=== PATIENT | female | born 1945 | race Caucasian/White ===

== ENCOUNTER 2017-01-29 09:16 | Emergency (ER) | payer OTHER ==
[~2017-01-29] VITALS: Ht 149.9 cm; Wt 65.0 kg
[~2017-01-29 09:16] MED LIST: ATOR10TA PO; CARV6.252 PO; FOLI1 PO; FOSA70TA PO; FURO1TAB93 PO; HYDR200T3 PO; JANU50TA PO; LEFL20TA7 PO; LORTA5 PO; MEDR4PAK3 PO; METH2.5 PO; PRED5TAB PO; PROT40TA PO; RAMI10CA35 PO; SPIR25TA PO
[2017-01-29 09:18] VITALS: BP 141/60; PULSE 98; RESP 18; TEMP 98.3; O2SAT 98
[2017-01-29 09:31] VITALS: BP 136/101; PULSE 99; RESP 18; O2SAT 98
[2017-01-29] MEDS ORDERED: PRED1 PO (09:44)
[2017-01-29] MEDS ORDERED: CARV6.252 PO (09:44)
[2017-01-29] MEDS ORDERED: METF500T4 PO (09:44)
[2017-01-29] MEDS ORDERED: PANT40TA3 PO (09:44)
[2017-01-29] MEDS ORDERED: ATOR10TA15 PO (09:44)
[2017-01-29] MEDS ORDERED: FURO40TA PO (09:44)
[2017-01-29] MEDS ORDERED: SULF500T3 PO (09:44)
[2017-01-29] MEDS ORDERED: ALEN1TAB48 PO (09:44)
[2017-01-29] MEDS ORDERED: SITA50 PO (09:44)
[2017-01-29] MEDS ORDERED: METH2.5T PO (09:44)
[2017-01-29] MEDS ORDERED: HYDR200T3 PO (09:44)
[2017-01-29] MEDS ORDERED: FOLI5CAP PO (09:44)
[2017-01-29 10:07] VITALS: O2SAT 97
[2017-01-29 10:21] LABS: AUTOMATED NEUTROPHIL # 10.8 TH/MM3 (1.8-7.7); BASOPHIL # 0.1 TH/MM3 (0-0.2); BASOPHIL % 0.8 % (0.0-2.0); EOSINOPHIL # 0.3 TH/MM3 (0-0.4); EOSINOPHIL % 2.3 % (0.0-4.0); HEMATOCRIT 32.8 % (35.0-46.0); HEMO FLAGS DIFF FINAL; LYMPH % 7.4 % (9.0-44.0); MEAN CELL VOLUME 90.7 FL (80.0-100.0); MEAN CORPUSCULAR HEMOGLOBIN 28.8 PG (27.0-34.0); MEAN CORPUSCULAR HGB CONC 31.8 % (32.0-36.0); MONO % 7.3 % (0.0-8.0); NEUT % 82.2 % (16.0-70.0); PLATELET COUNT 277 TH/MM3 (150-450); RED BLOOD COUNT 3.61 MIL/MM3 (4.00-5.30); RED CELL DISTRIBUTION WIDTH 16.3 % (11.6-17.2); WHITE BLOOD COUNT 13.2 TH/MM3 (4.0-11.0)
[2017-01-29 10:30] VITALS: BP 143/70; PULSE 94; RESP 18; O2SAT 98
[2017-01-29] MEDS ORDERED: ONDANSETRON HCL 4 MG/2 ML VIAL IV PUSH ONE (10:30)
[2017-01-29] MEDS ORDERED: HYDROmorphone HCL PF 1 MG/ML VIAL IV PUSH ONE (10:30)
--- NOTE | 2017-01-29 10:45 | RADRPT ---
EXAM DATE/TIME: 01/29/2017 09:57 [facility] COMPARISON: CHEST SINGLE AP, July 09, 2016, 22:22. INDICATIONS: Weakness. Slight shortness of breath. MEDICAL HISTORY: Hypertension. Diabetes mellitus type II. SURGICAL HISTORY: None. ENCOUNTER: Initial ACUITY: 1 day PAIN SCORE: 0/10 LOCATION: Bilateral chest FINDINGS: The heart and mediastinal structures are stable. The pulmonary vascular pattern is normal. The lung s are clear. Degenerative changes and scoliosis of the thoracolumbar spine are noted. CONCLUSION: 1. No acute cardiopulmonary disease. 2. Degenerative changes and scoliosis of the thoracolumbar spine. Rad Garcia MD on January 29, 2017 at 10:27 Board Certified Radiologist. This report was verified electronically.
--- NOTE | 2017-01-29 10:48 | PD ---
HPI Chief Complaint: General Weakness Time Seen by Provider: 09:38 Travel History International Travel<30 days: No Contact w/Intl Traveler<30days: No Traveled to known affect area: No History of Present Illness HPI This is a 71-year-old female with a history of hypertension, hyperlipidemia, diabetes mellitus, osteopenia, rheumatoid arthritis, who presents today with complaints of total body pain. The patient states that she was scheduled to see her primary care physician for something stronger for her pain however was not able to wait until the appointment later this week. She reports pain everywhere. She also reports general malaise. There is no reported fevers, chills. There is no reported dysuria urgency or frequency. There is no reported cough and shortness of breath or pulmonary symptoms. Patient does state that she has not been eating well secondary to her generalized discomfort. PFSH Past Medical History Arthritis: Yes Anxiety: No Depression: No Cardiovascular Problems: Yes (HTN) High Cholesterol: Yes Diabetes: Yes Patient Takes Glucophage: Yes Endocrine: Yes Genitourinary: No Hypertension: Yes Implanted Vascular Access Dvce: Yes Musculoskeletal: Yes (RA, OA, Left Rib fx ) Psychiatric: No Reproductive: No Tetanus Vaccination: Unknown Influenza Vaccination: No ?: Not Past Surgical History Body Medical Devices: metal plate in Right knee Social History Alcohol Use: No Tobacco Use: No Substance Use: No Allergies-Medications (Allergen,Severity, Reaction): Coded Allergies: No Known Allergies (Unverified , 07/09/16) Reported Meds & Prescriptions Reported Meds & Active Scripts Active Zofran Odt (Ondansetron Odt) 4 Mg Tab 4 Mg SL Q8HR PRN Dilaudid (Hydromorphone HCl) 2 Mg Tab 1 Mg PO Q8H PRN Reported Sulfasalazine 500 Mg Tab 500 Mg PO BID Pantoprazole (Pantoprazole Sodium) 40 Mg Tab 40 Mg PO DAILY Alendronate (Alendronate Sodium) 70 Mg Tab 70 Mg PO Q7D Hydroxychloroquine (Hydroxychloroquine Sulfate) 200 Mg Tab 200 Mg PO DAILY Takw with food Methotrexate 2.5 Mg Tab 25 Mg PO WEEKLY Atorvastatin (Atorvastatin Calcium) 10 Mg Tab 10 Mg PO HS Folic Acid 5 Mg Cap 5 Mg PO DAILY Furosemide 40 Mg Tab 40 Mg PO DAILY Carvedilol 6.25 Mg Tab 6.25 Mg PO BID Prednisone 1 Mg Tab 1 Mg PO DAILY Januvia (Sitagliptin Phosphate) 50 Mg Tab 50 Mg PO DAILY Metformin ER (Metformin HCl) 500 Mg Camron 500 Mg PO DAILY With evening meal Review of Systems Except as stated in HPI: all other systems reviewed are Neg General / Constitutional: No: Fever, Chills HENT: No: Headaches, Lightheadedness, Neck Pain Cardiovascular: No: Chest Pain or Discomfort, Palpitations Respiratory: No: Cough, Shortness of Breath Gastrointestinal: No: Nausea, Vomiting, Abdominal Pain Genitourinary: No: Frequency, Dysuria Musculoskeletal: Positive: Pain (diffuse joint pain), No: Myalgias, Weakness Skin: No Rash Neurologic: Positive: Weakness (generalized), No: Headache Physical Exam Narrative GENERAL: Well-nourished, well-developed patient, in no acute respiratory distressatraumatic. SKIN: Warm and dry. HEAD: Normocephalic. EYES: No scleral icterus. No injection or drainage. NECK: Supple, trachea midline. CARDIOVASCULAR: Regular rate and rhythm without murmurs, gallops, or rubs. RESPIRATORY: Breath sounds equal bilaterally. No accessory muscle use. GASTROINTESTINAL: Abdomen soft, non-tender, nondistended. No rebound, guarding. MUSCULOSKELETAL: No cyanosis, or edema. NEUROLOGICAL: Awake and alert. Cranial nerves II through XII intact. Motor grossly within normal limits. Five out of 5 muscle strength in all muscle groups. Normal speech. Data Data Last Documented VS Vital Signs Date Time Temp Pulse Resp B/P Pulse Ox O2 Delivery O2 Flow Rate FiO2 01/29/17 12:00 87 18 175/74 98 Room Air 01/29/17 09:18 98.3 Orders Complete Blood Count With Diff (01/29/17 09:55) Comprehensive Metabolic Panel (01/29/17 09:55) Urinalysis - C+S If Indicated (01/29/17 09:55) Chest, Single Ap (01/29/17 09:55) Iv Access Insert/Monitor (01/29/17 09:55) Ecg Monitoring (01/29/17 09:55) Oximetry (01/29/17 09:55) Hydromorphone Pf Inj (Dilaudid Pf Inj) (01/29/17 10:30) Ondansetron Inj (Zofran Inj) (01/29/17 10:30) Labs Laboratory Tests Test 01/29/17 10:00 White Blood Count 13.2 TH/MM3 Red Blood Count 3.61 MIL/MM3 Hemoglobin 10.4 GM/DL Hematocrit 32.8 % Mean Corpuscular Volume 90.7 FL Mean Corpuscular Hemoglobin 28.8 PG Mean Corpuscular Hemoglobin 31.8 % Concent Red Cell Distribution Width 16.3 % Platelet Count 277 TH/MM3 Mean Platelet Volume 8.9 FL Neutrophils (%) (Auto) 82.2 % Lymphocytes (%) (Auto) 7.4 % Monocytes (%) (Auto) 7.3 % Eosinophils (%) (Auto) 2.3 % Basophils (%) (Auto) 0.8 % Neutrophils # (Auto) 10.8 TH/MM3 Lymphocytes # (Auto) 1.0 TH/MM3 Monocytes # (Auto) 1.0 TH/MM3 Eosinophils # (Auto) 0.3 TH/MM3 Basophils # (Auto) 0.1 TH/MM3 CBC Comment DIFF FINAL Differential Comment Sodium Level 138 MEQ/L Potassium Level 4.0 MEQ/L Chloride Level 100 MEQ/L Carbon Dioxide Level 29.7 MEQ/L Anion Gap 8 MEQ/L Blood Urea Nitrogen 22 MG/DL Creatinine 1.13 MG/DL Estimat Glomerular Filtration 47 ML/MIN Rate Random Glucose 207 MG/DL Calcium Level 8.6 MG/DL Total Bilirubin 0.6 MG/DL Aspartate Amino Transf 12 U/L (AST/SGOT) Alanine Aminotransferase 25 U/L (ALT/SGPT) Alkaline Phosphatase 73 U/L Total Protein 7.4 GM/DL Albumin 2.8 GM/DL MDM Medical Decision Making Medical Screen Exam Complete: Yes Emergency Medical Condition: Yes Differential Diagnosis UTI versus pneumonia versus electrolyte abnormality versus acute exacerbation of chronic pain. Narrative Course 71-year-old female with history of rheumatoid arthritis, osteopenia, hypertension, diabetes mother's, presents today with claims of generalized joint pain. The patient states that she is scheduled to see her rheumatoid specialist tomorrow. I did try to call her primary care physician to discuss pain control until she sees the specialist however he had not called back. She was given 0.5 mg of Dilaudid which helped tremendously. I have written her prescription for 1 mg every 8 hours of Dilaudid. She is instructed not to take any more than that and if she could stretch out every 12 hours to do so. She is also given a prescription for Zofran. She'll follow up with Dr. Marr on as scheduled. Diagnosis Primary Impression: pain exacerbation of rheumatoid arthritis. Additional Impressions: DM2 (diabetes mellitus, type 2) Nausea & vomiting Patient Instructions: Narcotic given in the ED Med/Other Pt SpecificInfo: Prescription(s) given Scripts Ondansetron Odt (Zofran Odt)4 Mg Tab4 Mg SL Q8HR PRN (Nausea/Vomiting) #10 TAB Ref 0 Prov:George Márquez MD 01/29/17 Hydromorphone (Dilaudid)2 Mg Tab1 Mg PO Q8H PRN (Pain Management) #10 TAB Ref 0 Prov:George Márquez MD 01/29/17 Disposition: LEFT WITHOUT BEING SEEN George Márquez MD Jan 29, 2017 10:48
[2017-01-29 10:52] LABS: ALT (GPT) 25 U/L (10-53); ANION GAP 8 MEQ/L (5-15); AST (GOT) 12 U/L (15-37); BICARBONATE 29.7 MEQ/L (21.0-32.0); BLOOD UREA NITROGEN 22 MG/DL (7-18); CHLORIDE 100 MEQ/L (98-107); GLOMERULAR FILTRATION RATE 47 ML/MIN (>89); SODIUM (NA) 138 MEQ/L (136-145)
[2017-01-29 10:55] LABS: ALKALINE PHOSPHATASE 73 U/L (45-117); TOTAL BILIRUBIN ADULT 0.6 MG/DL (0.2-1.0)
[2017-01-29 12:00] VITALS: BP 175/74; PULSE 87; RESP 18; O2SAT 98
[2017-01-29] MEDS ORDERED: DILA2TAB2 PO (12:01)
[2017-01-29] MEDS ORDERED: ZOFR4TAB3 SL (12:14)
[2017-01-29 13:30] VITALS: BP 176/76; PULSE 91; RESP 18; O2SAT 98
== END 2017-01-29 14:24 | disposition home or self-care (01) ==
LOC: NEPE 09:16
DX: M06.9 Rheumatoid arthritis, unspecified (principal); E11.9 Type 2 diabetes mellitus without complications; R11.2 Nausea with vomiting, unspecified; R53.81 Other malaise; M85.80 Other specified disorders of bone density and structure, unspecified site; I10 Essential (primary) hypertension; E78.5 Hyperlipidemia, unspecified; E78.00 Pure hypercholesterolemia, unspecified
CPT/HCPCS: 71010; 80053; 85025; 96374; 96375; 99283; J1170; J2405

== ENCOUNTER 2017-02-13 15:53 | Emergency (ER) | payer OTHER ==
[~2017-02-13] VITALS: Ht 149.9 cm; Wt 66.4 kg
[~2017-02-13 15:53] MED LIST changes: +ALEN1TAB48 PO; -ATOR10TA PO; +ATOR10TA15 PO; +DILA2TAB2 PO; -FOLI1 PO; +FOLI5CAP PO; -FOSA70TA PO; -FURO1TAB93 PO; +FURO40TA PO; -JANU50TA PO; -LEFL20TA7 PO; -LORTA5 PO; -MEDR4PAK3 PO; +METF500T4 PO; -METH2.5 PO; +METH2.5T PO; +PANT40TA3 PO; +PRED1 PO; -PRED5TAB PO; -PROT40TA PO; -RAMI10CA35 PO; +SITA50 PO; -SPIR25TA PO; +SULF500T3 PO; +ZOFR4TAB3 SL
[2017-02-13 15:55] VITALS: BP 227/88; PULSE 87; RESP 14; TEMP 98.6; O2SAT 92
[2017-02-13] MEDS ORDERED: TRAZ50TA12 PO (17:09)
[2017-02-13] MEDS ORDERED: DICL75TA PO (17:10)
[2017-02-13 17:15] VITALS: BP 187/95
--- NOTE | 2017-02-13 17:34 | PD ---
HPI . Fall Chief Complaint: Fall Time Seen by Provider: 17:03 Travel History International Travel<30 days: No Contact w/Intl Traveler<30days: No Traveled to known affect area: No History of Present Illness HPI Patient presents for evaluation of injury sustained in a fall. It was a mechanical fall. She reports left shoulder and left hip pain. She denies blow to her head or loss of consciousness. She denies neck pain. PFSH Past Medical History Arthritis: Yes Anxiety: No Depression: No Cardiovascular Problems: Yes (HTN) High Cholesterol: Yes Diabetes: Yes Endocrine: Yes Genitourinary: No Hypertension: Yes Implanted Vascular Access Dvce: Yes Musculoskeletal: Yes (RA, OA, Left Rib fx ) Psychiatric: No Reproductive: No Tetanus Vaccination: Unknown Influenza Vaccination: No Past Surgical History Body Medical Devices: metal plate in Right knee Social History Alcohol Use: No Tobacco Use: No Substance Use: No Allergies-Medications (Allergen,Severity, Reaction): Coded Allergies: No Known Allergies (Unverified , 02/13/17) Reported Meds & Prescriptions Reported Meds & Active Scripts Active Tylenol-Codeine #3 (Acetaminophen-Codeine) 300-30 mg Tab 1 Tab PO Q4H PRN Zofran Odt (Ondansetron Odt) 4 Mg Tab 4 Mg SL Q8HR PRN Reported Diclofenac Sodium DR (Diclofenac Sodium) 75 Mg Tabdr 75 Mg PO BID Trazodone (Trazodone HCl) 50 Mg Tab 50 Mg PO HS Pantoprazole (Pantoprazole Sodium) 40 Mg Tab 40 Mg PO DAILY Alendronate (Alendronate Sodium) 70 Mg Tab 70 Mg PO Q7D Hydroxychloroquine (Hydroxychloroquine Sulfate) 200 Mg Tab 200 Mg PO DAILY Takw with food Methotrexate 2.5 Mg Tab 25 Mg PO WEEKLY Atorvastatin (Atorvastatin Calcium) 10 Mg Tab 10 Mg PO HS Folic Acid 5 Mg Cap 5 Mg PO DAILY Furosemide 40 Mg Tab 40 Mg PO DAILY Carvedilol 6.25 Mg Tab 6.25 Mg PO BID Prednisone 1 Mg Tab 1 Mg PO DAILY Januvia (Sitagliptin Phosphate) 50 Mg Tab 50 Mg PO DAILY Metformin ER (Metformin HCl) 500 Mg Camron 500 Mg PO DAILY With evening meal Review of Systems Except as stated in HPI: all other systems reviewed are Neg Musculoskeletal: Positive: Arthralgias Physical Exam Narrative GENERAL: Elderly woman who is awake and alert and in no acute distress SKIN: Warm and dry. HEAD: Atraumatic. Normocephalic. EYES: Pupils equal and round. ENT: No nasal bleeding or discharge. Mucous membranes pink and moist. NECK: Trachea midline. CARDIOVASCULAR: Regular rate and rhythm. RESPIRATORY: No accessory muscle use. MUSCULOSKELETAL: She has diffuse changes consistent with rheumatoid arthritis. She has tenderness to palpation in all joints. No gross deformity. NEUROLOGICAL: Awake and alert. No obvious cranial nerve deficits. Motor grossly within normal limits. Normal speech. PSYCHIATRIC: Appropriate mood and affect; insight and judgment normal. Data Data Last Documented VS Vital Signs Date Time Temp Pulse Resp B/P Pulse Ox O2 Delivery O2 Flow Rate FiO2 02/13/17 17:15 187/95 02/13/17 16:56 18 98 Room Air 02/13/17 15:55 98.6 87 Orders Hip, Uni(Ap&Lat) W Ap Pelvis (02/13/17 17:03) Shoulder, Complete (>2vws) (02/13/17 17:03) Morphine Inj (Morphine Inj) (02/13/17 18:00) Ondansetron Odt (Zofran Odt) (02/13/17 18:00) [facility] Medical Decision Making Medical Screen Exam Complete: Yes Emergency Medical Condition: Yes Differential Diagnosis Differential diagnosis of extremity trauma includes but is not limited to fracture, sprain or strain, dislocation, contusion Narrative Course Patient presents for evaluation of injury sustained in a fall. X-rays of the shoulder and hip showed degenerative changes. No acute fracture or dislocation. Diagnosis Primary Impression: Contusion of left shoulder, initial encounter Additional Impression: Contusion of left hip, initial encounter Patient Instructions: Contusion in Adults (DC), General Instructions, Narcotic given in the ED Scripts Acetaminophen-Codeine (Tylenol-Codeine #3)300-30 mg Tab1 Tab PO Q4H PRN (PAIN) # 12 TAB Ref 0 Prov:Renata Iyer MD 02/13/17 Disposition: 01 DISCHARGE HOME Condition: Stable Renata Iyer MD Feb 13, 2017 17:34
--- NOTE | 2017-02-13 17:52 | RADRPT ---
EXAM DATE/TIME: 02/13/2017 17:23 [facility] COMPARISON: CHEST SINGLE AP, January 29, 2017, 9:57. INDICATIONS : Left hip pain after fall from standing height today MEDICAL HISTORY : None. SURGICAL HISTORY : None. ENCOUNTER: Initial ACUITY: 1 day PAIN SCORE: 10/10 LOCATION: Left entire hip FINDINGS: The examination demonstrates advanced degenerative changes in lower lumbar spine. The femoral heads are well situated within the acetabular fossa. There mild degenerative changes with in the hips. No acute fracture or destructive lesion is seen. CONCLUSION: 1. No acute fracture identified. 2. Advanced degenerative changes in the lower lumbar spine. Melvin Braun MD on February 13, 2017 at 17:49 Board Certified Radiologist. This report was verified electronically.
--- NOTE | 2017-02-13 17:53 | RADRPT ---
EXAM DATE/TIME: 02/13/2017 17:28 [facility] COMPARISON: HIP LEFT (AP&LAT 2/3VWS) W AP PELVIS, February 13, 2017, 17:23. INDICATIONS : Left shoulder pain after fall from standing height today MEDICAL HISTORY : None. SURGICAL HISTORY : None. ENCOUNTER: Initial ACUITY: 1 day PAIN SCORE: 10/10 LOCATION: Left entire shoulder FINDINGS: The humeral head is well situated within the glenoid fossa. The alignment is good. There are degenera tive changes within the a.c. joint. No acute fracture is seen. The limited portions of the lung apex visualized are clear. CONCLUSION: 1. No acute bony abnormality identified. Melvin Braun MD on February 13, 2017 at 17:50 Board Certified Radiologist. This report was verified electronically.
[2017-02-13] MEDS ORDERED: MORPHINE SULFATE 4 MG/ML INJ IM ONE (18:00)
[2017-02-13] MEDS ORDERED: ONDANSETRON ODT 4 MG TAB PO ONE (18:00)
[2017-02-13] MEDS ORDERED: TYLETAB34 PO (18:03)
[2017-02-13 18:38] VITALS: BP 182/74; PULSE 85; RESP 14; O2SAT 92
== END 2017-02-13 18:51 | disposition home or self-care (01) ==
LOC: NEPC 15:53
DX: S40.012A Contusion of left shoulder, initial encounter (principal); S70.02XA Contusion of left hip, initial encounter; W19.XXXA Unspecified fall, initial encounter
CPT/HCPCS: 73030; 73502; 96372; 99283; J2270

== ENCOUNTER 2017-02-19 19:35 | Observation (INO) | payer OTHER ==
[~2017-02-19] VITALS: Ht 165.1 cm; Wt 60.0 kg
[~2017-02-19 19:35] MED LIST changes: +DICL75TA PO; -DILA2TAB2 PO; -SULF500T3 PO; +TRAZ50TA12 PO; +TYLETAB34 PO
[2017-02-19 19:39] VITALS: BP 148/65; PULSE 99; RESP 16; TEMP 98.4; O2SAT 99
[2017-02-19] MEDS ORDERED: SODIUM CHLORIDE 0.9% FLUSH 10 ML FLUSH IVF PRN (19:45)
[2017-02-19] MEDS ORDERED: FOLI5CAP PO (19:48)
[2017-02-19 19:49] VITALS: RESP 18; O2SAT 99
[2017-02-19 20:05] LABS: AUTOMATED NEUTROPHIL # 6.6 TH/MM3 (1.8-7.7); BASOPHIL # 0.1 TH/MM3 (0-0.2); EOSINOPHIL # 0.7 TH/MM3 (0-0.4); EOSINOPHIL % 7.8 % (0.0-4.0); HEMATOCRIT 29.8 % (35.0-46.0); LYMPH % 7.6 % (9.0-44.0); LYMPHOCYTE # 0.7 TH/MM3 (1.0-4.8); MEAN CELL VOLUME 89.2 FL (80.0-100.0); MEAN CORPUSCULAR HEMOGLOBIN 29.4 PG (27.0-34.0); MEAN CORPUSCULAR HGB CONC 32.9 % (32.0-36.0); MONO % 6.8 % (0.0-8.0); NEUT % 76.8 % (16.0-70.0); PLATELET COUNT 174 TH/MM3 (150-450); RED BLOOD COUNT 3.34 MIL/MM3 (4.00-5.30); RED CELL DISTRIBUTION WIDTH 17.2 % (11.6-17.2); WHITE BLOOD COUNT 8.6 TH/MM3 (4.0-11.0)
[2017-02-19 20:10] LABS: HEMO FLAGS AUTO DIFF
[2017-02-19 20:25] LABS: APTT (PATIENT) 28.5 SEC (24.3-30.1); INTERNATIONAL NORMALIZED RATIO 1.1 RATIO; PROTHROMBIN TIME - PATIENT 11.7 SEC (9.8-11.6)
--- NOTE | 2017-02-19 20:27 | PD ---
HPI Chief Complaint: Altered Mental Status Time Seen by Provider: 19:42 Travel History International Travel<30 days: No Contact w/Intl Traveler<30days: No Traveled to known affect area: No History of Present Illness HPI Patient is a 72-year-old female with history of rheumatoid arthritis, hypertension, diabetes, presents to emergency room with her family members with complaints of altered mental status. As per family members, patient suffered a mechanical fall on February 13, 2017, reports that she was seen in the emergency room and had x-rays of her left shoulder and her left hip which did not show any fractures. Patient was sent home with a prescription for pain medications. Family reports that since her fall, she has not been able to get out of bed, reports the patient complains of severe pain to her left hip. Reports that this morning, patient appeared altered and was "speaking funny and didn't make any sense" and reports the patient appeared "not her normal self." Reports the patient is normally alert and oriented 3, reports that she did not know her birthday today. Reports no fevers or chills, no chest pain or shortness of breath. Patient here is alert to person place and time, patient only complains of pain to her left shoulder as well as her left hip, patient with no other complaints at this time. Patient is not on any anticoagulants PFSH Past Medical History Arthritis: Yes Anxiety: No Depression: No Cardiovascular Problems: Yes (HTN) High Cholesterol: Yes Diabetes: Yes Patient Takes Glucophage: Yes Diminished Hearing: No Endocrine: Yes Genitourinary: No Hypertension: Yes Implanted Vascular Access Dvce: Yes Musculoskeletal: Yes (RA, OA, Left Rib fx ) Psychiatric: No Reproductive: No Tetanus Vaccination: < 5 Years Influenza Vaccination: No Past Surgical History Body Medical Devices: metal plate in Right knee Social History Alcohol Use: No Tobacco Use: No Substance Use: No Allergies-Medications (Allergen,Severity, Reaction): Coded Allergies: No Known Allergies (Unverified , 02/19/17) Reported Meds & Prescriptions Reported Meds & Active Scripts Active Tylenol-Codeine #3 (Acetaminophen-Codeine) 300-30 mg Tab 1 Tab PO Q4H PRN Zofran Odt (Ondansetron Odt) 4 Mg Tab 4 Mg SL Q8HR PRN Reported Folic Acid 5 Mg Cap 1 Mg PO DAILY Diclofenac Sodium DR (Diclofenac Sodium) 75 Mg Tabdr 75 Mg PO BID Trazodone (Trazodone HCl) 50 Mg Tab 50 Mg PO HS Pantoprazole (Pantoprazole Sodium) 40 Mg Tab 40 Mg PO DAILY Alendronate (Alendronate Sodium) 70 Mg Tab 70 Mg PO Q7D Hydroxychloroquine (Hydroxychloroquine Sulfate) 200 Mg Tab 200 Mg PO DAILY Takw with food Methotrexate 2.5 Mg Tab 25 Mg PO WEEKLY Atorvastatin (Atorvastatin Calcium) 10 Mg Tab 10 Mg PO HS Furosemide 40 Mg Tab 40 Mg PO DAILY Carvedilol 6.25 Mg Tab 6.25 Mg PO BID Prednisone 1 Mg Tab 1 Mg PO DAILY Januvia (Sitagliptin Phosphate) 50 Mg Tab 50 Mg PO DAILY Metformin ER (Metformin HCl) 500 Mg Camron 500 Mg PO DAILY With evening meal Review of Systems General / Constitutional: No: Fever Eyes: No: Visual changes HENT: No: Headaches Cardiovascular: No: Chest Pain or Discomfort Respiratory: No: Shortness of Breath Gastrointestinal: No: Abdominal Pain Genitourinary: No: Dysuria Musculoskeletal: Positive: Limited ROM (left shoulder and left hip), Pain ( left shoulder and left hip) Skin: No Rash Neurologic: Positive: Weakness, Slurred Speech Psychiatric: No: Depression Endocrine: No: Polydipsia Hematologic/Lymphatic: No: Easy Bruising Physical Exam Narrative GENERAL: moderate distress SKIN: warm/dry. HEAD: Atraumatic. Normocephalic. EYES: Pupils equal and round. No scleral icterus. No injection or drainage. ENT: No nasal bleeding or discharge. Mucous membranes pink and moist. NECK: Trachea midline. No JVD. CARDIOVASCULAR: Regular rate and rhythm. No murmur appreciated. RESPIRATORY: No accessory muscle use. Clear to auscultation. Breath sounds equal bilaterally. GASTROINTESTINAL: Abdomen soft, non-tender, nondistended. Hepatic and splenic margins not palpable. MUSCULOSKELETAL: No obvious deformities. No clubbing. Patient with no obvious deformities, no obvious open fractures, patient with pain with range of motion to her left shoulder as well as her left hip. Pulses intact, neurovascularly intact. NEUROLOGICAL: Awake and alert. No obvious cranial nerve deficits. Normal speech. PSYCHIATRIC: Flat affect, insight and judgment normal. Data Data Last Documented VS Vital Signs Date Time Temp Pulse Resp B/P Pulse Ox O2 Delivery O2 Flow Rate FiO2 02/19/17 20:57 97 18 172/96 98 Room Air 02/19/17 19:39 98.4 Orders Electrocardiogram (02/19/17 19:43) Prothrombin Time / Inr (Pt) (02/19/17 19:43) Act Partial Throm Time (Ptt) (02/19/17 19:43) Complete Blood Count With Diff (02/19/17 19:43) Comprehensive Metabolic Panel (02/19/17 19:43) Creatine Kinase (Cpk) (02/19/17 19:43) Troponin I (02/19/17:43) Urinalysis - C+S If Indicated (02/19/17 19:43) Ct Brain W/O Iv Contrast(Rout) (02/19/17 19:43) Chest, Single Ap (02/19/17:43) Ecg Monitoring (02/19/17:43) Iv Access Insert/Monitor (02/19/17:43) Oximetry (02/19/17 19:43) Blood Glucose (02/19/17 19:43) Sodium Chloride 0.9% Flush (Ns Flush) (02/19/17 19:45) Ct Hip W/O Contrast (02/19/17 ) Place In Observation (02/19/17 ) Vital Signs (Adult) Q4H (02/19/17 21:59) Activity Oob With Assistance (02/19/17 21:59) Diet Heart Healthy (02/20/17 Breakfast) Sodium Chloride 0.9% Flush (Ns Flush) (02/19/17 22:00) Sodium Chloride 0.9% Flush (Ns Flush) (02/20/17 09:00) Acetaminophen (Tylenol) (02/19/17 22:00) Ondansetron Inj (Zofran Inj) (02/19/17 22:00) Bisacodyl Supp (Dulcolax Supp) (02/19/17 22:00) Basic Metabolic Panel (Bmp) (02/20/17 06:00) Complete Blood Count With Diff (02/20/17 06:00) Resp Oxygen Scott C Titrat 1-4 L (02/19/17 ) Pt Request For Service (02/19/17 21:59) Naloxone Inj (Narcan Inj) (02/19/17 22:00) Acetamin-Hydrocod 325-5 Mg ([place] 5-325 (02/19/17 22:00) Acetamin-Hydrocod 325-10 Mg ([place] 10-32 (02/19/17 22:00) Morphine Inj (Morphine Inj) (02/19/17 22:15) Docusate Sodium (Colace) (02/20/17 09:00) Enoxaparin Inj (Lovenox Inj) (02/20/17 09:00) Labs Laboratory Tests Test 02/19/17 19:45 White Blood Count 8.6 TH/MM3 Red Blood Count 3.34 MIL/MM3 Hemoglobin 9.8 GM/DL Hematocrit 29.8 % Mean Corpuscular Volume 89.2 FL Mean Corpuscular Hemoglobin 29.4 PG Mean Corpuscular Hemoglobin 32.9 % Concent Red Cell Distribution Width 17.2 % Platelet Count 174 TH/MM3 Mean Platelet Volume 9.3 FL Neutrophils (%) (Auto) 76.8 % Lymphocytes (%) (Auto) 7.6 % Monocytes (%) (Auto) 6.8 % Eosinophils (%) (Auto) 7.8 % Basophils (%) (Auto) 1.0 % Neutrophils # (Auto) 6.6 TH/MM3 Lymphocytes # (Auto) 0.7 TH/MM3 Monocytes # (Auto) 0.6 TH/MM3 Eosinophils # (Auto) 0.7 TH/MM3 Basophils # (Auto) 0.1 TH/MM3 CBC Comment AUTO DIFF Differential Total Cells 100 Counted Neutrophils % (Manual) 78 % Band Neutrophils % 3 % Lymphocytes % 5 % Monocytes % 6 % Eosinophils % 7 % Basophils % 1 % Neutrophils # (Manual) 7.0 TH/MM3 Differential Comment FINAL DIFF MANUAL Platelet Estimate NORMAL Platelet Morphology Comment NORMAL Red Cell Morphology Comment NORMAL Prothrombin Time 11.7 SEC Prothromb Time International 1.1 RATIO Ratio Activated Partial 28.5 SEC Thromboplast Time Sodium Level 131 MEQ/L Potassium Level 4.6 MEQ/L Chloride Level 97 MEQ/L Carbon Dioxide Level 23.8 MEQ/L Anion Gap 10 MEQ/L Blood Urea Nitrogen 16 MG/DL Creatinine 1.09 MG/DL Estimat Glomerular Filtration 49 ML/MIN Rate Random Glucose 192 MG/DL Calcium Level 7.7 MG/DL Total Bilirubin 0.7 MG/DL Aspartate Amino Transf 27 U/L (AST/SGOT) Alanine Aminotransferase 19 U/L (ALT/SGPT) Alkaline Phosphatase 90 U/L Total Creatine Kinase 85 U/L Troponin I 0.02 NG/ML Total Protein 5.9 GM/DL Albumin 2.0 GM/DL MDM Medical Decision Making Medical Screen Exam Complete: Yes Emergency Medical Condition: Yes Interpretation(s) Vital Signs Date Time Temp Pulse Resp B/P Pulse Ox O2 Delivery O2 Flow Rate FiO2 02/19/17 20:17 81 16 98 Room Air 02/19/17 19:49 18 99 Room Air 02/19/17 19:39 98.4 99 16 148/65 99 Differential Diagnosis Intracranial hemorrhage, left hip fracture, UTI, electrolyte metabolic, arrhythmia Narrative Course 72-year-old female who presents to emergency room from home with her family for evaluation of change in mental status. Patient suffered a mechanical fall on February 13, 2017, reports that after her fall, she has not been able to ambulate and complains of pain to her left hip. She did have x-rays performed of her left shoulder and her left hip which was negative for fracture. Family reports that since she woke up this morning, patient has not been making any sense and appears confused. Patient is alert and oriented 3 while in the emergency room. Vital signs are stable. Patient was put on a rn cardiac, EKG ordered. CT of her head, left hip ordered. We'll check labs and UA and monitor her on a rn cardiac Laboratory Tests Test 02/19/17 19:45 White Blood Count 8.6 TH/MM3 (4.0-11.0) Red Blood Count 3.34 MIL/MM3 (4.00-5.30) Hemoglobin 9.8 GM/DL (11.6-15.3) Hematocrit 29.8 % (35.0-46.0) Mean Corpuscular Volume 89.2 FL (80.0-100.0) Mean Corpuscular Hemoglobin 29.4 PG (27.0-34.0) Mean Corpuscular Hemoglobin 32.9 % Concent (32.0-36.0) Red Cell Distribution Width 17.2 % (11.6-17.2) Platelet Count 174 TH/MM3 (150-450) Mean Platelet Volume 9.3 FL (7.0-11.0) Neutrophils (%) (Auto) 76.8 % (16.0-70.0) Lymphocytes (%) (Auto) 7.6 % (9.0-44.0) Monocytes (%) (Auto) 6.8 % (0.0-8.0) Eosinophils (%) (Auto) 7.8 % (0.0-4.0) Basophils (%) (Auto) 1.0 % (0.0-2.0) Neutrophils # (Auto) 6.6 TH/MM3 (1.8-7.7) Lymphocytes # (Auto) 0.7 TH/MM3 (1.0-4.8) Monocytes # (Auto) 0.6 TH/MM3 (0-0.9) Eosinophils # (Auto) 0.7 TH/MM3 (0-0.4) Basophils # (Auto) 0.1 TH/MM3 (0-0.2) CBC Comment AUTO DIFF Differential Total Cells 100 Counted Neutrophils % (Manual) 78 % (16-70) Band Neutrophils % 3 % (0-6) Lymphocytes % 5 % (9-44) Monocytes % 6 % (0-8) Eosinophils % 7 % (0-4) Basophils % 1 % (0-2) Neutrophils # (Manual) 7.0 TH/MM3 (1.8-7.7) Differential Comment FINAL DIFF MANUAL Platelet Estimate NORMAL (NORMAL) Platelet Morphology Comment NORMAL (NORMAL) Red Cell Morphology Comment NORMAL (NORMAL) Prothrombin Time 11.7 SEC (9.8-11.6) Prothromb Time International 1.1 RATIO Ratio Activated Partial 28.5 SEC Thromboplast Time (24.3-30.1) Sodium Level 131 MEQ/L (136-145) Potassium Level 4.6 MEQ/L (3.5-5.1) Chloride Level 97 MEQ/L (98-107) Carbon Dioxide Level 23.8 MEQ/L (21.0-32.0) Anion Gap 10 MEQ/L (5-15) Blood Urea Nitrogen 16 MG/DL (7-18) Creatinine 1.09 MG/DL (0.50-1.00) Estimat Glomerular Filtration 49 ML/MIN (>89) Rate Random Glucose 192 MG/DL (74-106) Calcium Level 7.7 MG/DL (8.5-10.1) Total Bilirubin 0.7 MG/DL (0.2-1.0) Aspartate Amino Transf 27 U/L (15-37) (AST/SGOT) Alanine Aminotransferase 19 U/L (10-53) (ALT/SGPT) Alkaline Phosphatase 90 U/L (45-117) Total Creatine Kinase 85 U/L (26-192) Troponin I 0.02 NG/ML (0.02-0.05) Total Protein 5.9 GM/DL (6.4-8.2) Albumin 2.0 GM/DL (3.4-5.0) Last Impressions Head CT 02/19/171942 Signed Impressions: Service Date/Time: Sunday, February 19, 2017 20:05 - CONCLUSION: Subtle asymmetric low attenuation area in the deep white matter of the right parietal lobe of unclear significance. Further evaluation with MRI imaging with and without contrast is recommended. Cal Atkins MD Chest X-Ray 02/19/171942 Signed Impressions: Service Date/Time: Sunday, February 19, 2017 19:44 - CONCLUSION: Suboptimal rotated and kyphotic exam with apparent cardiomegaly and no definite acute cardiopulmonary disease. Cal Atkins MD Lower Extremity CT 02/19/17 0000 Signed Impressions: Service Date/Time: Sunday, February 19, 2017 20:11 - CONCLUSION: 1. Subacute fracture involving the left superior and inferior pubic rami. 2. The left hip is intact. 3. Degenerative change involving the lumbar spine with scoliosis. Cla Atkins MD Patient with acute fractures involving the left superior and inferior pubic rami , patient unable to ambulate since secondary to pain, patient will admission to the hospital for pain management as well as for subacute rehabilitation Case reviewed with Dr. Brasher who accepts patient to service. Reviewed all labs and studies with patient's family members as well as patient in detail Diagnosis Primary Impression: Fracture of pubic ramus Qualified Code: S32.592A - Fracture of pubic ramus, left, closed, initial encounter Additional Impression: Anemia Qualified Code: D64.9 - Anemia, unspecified type Admitting Information Admitting Physician Requests: Admit Nieves Tran DO Feb 19, 2017 20:27
[2017-02-19 20:30] LABS: ANION GAP 10 MEQ/L (5-15)
[2017-02-19 20:34] LABS: BANDS 3 % (0-6); BASOPHILS 1 % (0-2); EOSINOPHILS 7 % (0-4); POLYS (SEG NEUTROPHILS) 78 % (16-70); WBC DIFF SAMPLE 100
[2017-02-19 20:35] LABS: ALKALINE PHOSPHATASE 90 U/L (45-117); ALT (GPT) 19 U/L (10-53); AST (GOT) 27 U/L (15-37); BICARBONATE 23.8 MEQ/L (21.0-32.0); BLOOD UREA NITROGEN 16 MG/DL (7-18); CHLORIDE 97 MEQ/L (98-107); CREATINE KINASE 85 U/L (26-192); GLOMERULAR FILTRATION RATE 49 ML/MIN (>89); PLATELET ESTIMATE SMEAR NORMAL (NORMAL); PLATELET MORPHOLOGY NORMAL (NORMAL); POTASSIUM 4.6 MEQ/L (3.5-5.1); SCAN/DIFF FINAL DIFF MANUAL; SODIUM (NA) 131 MEQ/L (136-145); TOTAL BILIRUBIN ADULT 0.7 MG/DL (0.2-1.0)
--- NOTE | 2017-02-19 20:50 | RADRPT ---
EXAM DATE/TIME: 02/19/2017 20:05 [facility] COMPARISON: No previous studies available for comparison. INDICATIONS : Altered mental status. RADIATION DOSE: 41.41 CTDIvol (mGy) MEDICAL HISTORY : Hypertension. Diabetes. SURGICAL HISTORY : None. ENCOUNTER: Initial ACUITY: 1 day PAIN SCALE: 0/10 LOCATION: cranial TECHNIQUE: Multiple contiguous axial images were obtained of the head. Using automated exposure control and adj ustment of the mA and/or kV according to patient size, radiation dose was kept as low as reasonably a chievable to obtain optimal diagnostic quality images. FINDINGS: CEREBRUM: The ventricles are normal for age. There is no evidence of midline shift or hemorrhage. There is a crocker btle 1.3 cm area of asymmetric low attenuation in the deep white matter in the right parietal lobe ad jacent to the right lateral ventricle seen on images numbers 18 and 19. No extra-axial fluid collecti ons are seen. POSTERIOR FOSSA: The cerebellum and brainstem are intact. The 4th ventricle is midline. The cerebellopontine angle i s unremarkable. EXTRACRANIAL: The visualized portion of the orbits is intact. SKULL: The calvaria is intact. No evidence of skull fracture. CONCLUSION: Subtle asymmetric low attenuation area in the deep white matter of the right parietal lobe of unclear significance. Further evaluation with MRI imaging with and without contrast is recommended. Cal Atkins MD on February 19, 2017 at 20:46 Board Certified Radiologist. This report was verified electronically.
--- NOTE | 2017-02-19 20:53 | RADRPT ---
EXAM DATE/TIME: 02/19/2017 20:11 [facility] COMPARISON: HIP LEFT (AP&LAT 2/3VWS) W AP PELVIS, February 13, 2017, 17:23. INDICATIONS : Mechanical fall six days ago. Left hip pain. RADIATION DOSE: 32.56 CTDIvol (mGy) MEDICAL HISTORY : Rheumatoid arthritis. Hypertension. Diabetes. SURGICAL HISTORY : None. ENCOUNTER: Initial ACUITY: 4 - 6 days PAIN SCALE: 7/10 LOCATION: Left hip TECHNIQUE: Volumetric scanning of the hip was performed. Using automated exposure control and adjustment of the mA and/or kV according to patient size, radiation dose was kept as low as reasonably achievable to o btain optimal diagnostic quality images. FINDINGS: BONES: There is a subacute fracture involving the left superior and inferior pubic rami with indistinct frac ture lines and apparent mild resorption. The left hip is intact. There is mild osteopenia. Degenerati ve changes are noted in the lower lumbar spine with scoliosis. JOINTS: No evidence of joint narrowing or effusion. SOFT TISSUES: Muscles, tendons and neurovascular structures are grossly unremarkable. No evidence of mass, organize d fluid collection, or foreign body. CONCLUSION: 1. Subacute fracture involving the left superior and inferior pubic rami. 2. The left hip is intact. 3. Degenerative change involving the lumbar spine with scoliosis. Cal Atkins MD on February 19, 2017 at 20:48 Board Certified Radiologist. This report was verified electronically.
[2017-02-19 20:57] VITALS: BP 172/96; PULSE 97; RESP 18; O2SAT 98
--- NOTE | 2017-02-19 21:00 | RADRPT ---
EXAM DATE/TIME: 02/19/2017 19:44 [facility] COMPARISON: CHEST SINGLE AP, January 29, 2017, 9:57. INDICATIONS : Chest pain. MEDICAL HISTORY : Myocardial infarction. SURGICAL HISTORY : Coronary artery stent. ENCOUNTER: Initial ACUITY: 1 day PAIN SCORE: 10/10 LOCATION: Left chest. FINDINGS: A single AP portable erect view of the chest was obtained. The study is rotated and kyphotic with selina arent cardiomegaly. There is no confluent infiltrate or effusion. Bony thorax appears intact. CONCLUSION: Suboptimal rotated and kyphotic exam with apparent cardiomegaly and no definite acute cardiopulmonary disease. Cal Atkins MD on February 19, 2017 at 20:57 Board Certified Radiologist. This report was verified electronically.
[2017-02-19] MEDS ORDERED: ACETAMINOPHEN 325 MG TAB PO PRN (22:00)
[2017-02-19] MEDS ORDERED: ONDANSETRON HCL 4 MG/2 ML VIAL IVP PRN (22:00)
[2017-02-19] MEDS ORDERED: NALOXONE HCL 0.4 MG/ML AMP IV PRN (22:00)
[2017-02-19] MEDS ORDERED: SODIUM CHLORIDE 0.9% FLUSH 10 ML FLUSH IV FLUSH PRN (22:00)
[2017-02-19 22:11] VITALS: O2SAT 98
[2017-02-19] MEDS ORDERED: MORPHINE SULFATE 4 MG/ML INJ IV PUSH ONE (22:15)
[2017-02-19] MEDS: SODIUM CHLORIDE 0.9% FLUSH 10 ML FLUSH IV FLUSH SCH (22:36)
[2017-02-19 22:46] VITALS: BP 121/57; PULSE 93; RESP 16; O2SAT 97
[2017-02-19 22:55] LABS: BLOOD, URINE NEG (NEG); GLUCOSE,URINE NEG (NEG); KETONE, URINE NEG (NEG); NITRITE,URINE NEG (NEG); SQUAMOUS EPITHELIAL CELL URINE <1 /hpf (0-5); URINE COLOR YELLOW (YELLW/STRAW)
[2017-02-19 22:58] LABS: COMMENT (UR) CATH-CULT NOT IND; CULTURE IF INDICATED CATH CULTURE NOT IND
[2017-02-20] VITALS (8 sets, daily range): BP systolic 115–159; BP diastolic 0–86; PULSE 90–107; RESP 16–20; TEMP 96.9–98.7; O2SAT 95–96
--- NOTE | 2017-02-20 02:30 | HHI.HP ---
[facility] Primary Care Physician Giovany Dolan MD Admission Diagnosis Pubic rami fractures Diagnoses: Travel History International Travel<30 Days: No Contact w/Intl Traveler <30 Da: No Traveled to Known Affected Are: No History of Present Illness This is a 72 year old female patient with a past medical history of HTN, hyperlipidemia, RA, OA and DM. Patient presents to emergency room. Patient suffered a mechanical fall on February 13, 2017, reports that she was seen in the emergency room and had x-rays of her left shoulder and her left hip which did not show any fractures. Patient was sent home with a prescription for pain medications. Family reports that since her fall, she has not been able to get out of bed, reports the patient complains of severe pain to her left hip. Reports that this morning, patient appeared altered and was "not her normal self." Reports the patient is normally alert and oriented 3, reports that she did not know her birthday today. Reports no fevers or chills, no chest pain or shortness of breath. On further questioning patient reports that she had nausea, chest pain, diaphoresis and dizziness prior to her fall on February 13, 2017. Patient reports that she has had vomiting for 2-3 days prior to the fall. Patient denies loss of consciousness change in vision head trauma at the time of the fall. Patient at this time denies chest pain shortness of breath nausea vomiting fevers or chills. Patient is soft-spoken and seems to have a hard time recalling details regarding health history, recent fall or exact reason she came to the hospital today. Patient appears to be a poor historian therefore information gathered from patient as well as prior computerized charting. Review of Systems ROS Limitations: Poor Historian Except as stated in HPI: all other systems reviewed are Neg Past Family Social History Past Medical History HTN, hyperlipidemia, RA, OA and DM Past Surgical History Right knee surgery Reported Medications Tylenol-Codeine #3 (Acetaminophen-Codeine) 300-30 mg Tab 1 Tab PO Q4H PRN Zofran Odt (Ondansetron Odt) 4 Mg Tab 4 Mg SL Q8HR PRN Folic Acid 5 Mg Cap 1 Mg PO DAILY Diclofenac Sodium DR (Diclofenac Sodium) 75 Mg Tabdr 75 Mg PO BID Trazodone (Trazodone HCl) 50 Mg Tab 50 Mg PO HS Pantoprazole (Pantoprazole Sodium) 40 Mg Tab 40 Mg PO DAILY Alendronate (Alendronate Sodium) 70 Mg Tab 70 Mg PO Q7D Hydroxychloroquine (Hydroxychloroquine Sulfate) 200 Mg Tab 200 Mg PO DAILY Takw with food Methotrexate 2.5 Mg Tab 25 Mg PO WEEKLY Atorvastatin (Atorvastatin Calcium) 10 Mg Tab 10 Mg PO HS Furosemide 40 Mg Tab 40 Mg PO DAILY Carvedilol 6.25 Mg Tab 6.25 Mg PO BID Prednisone 1 Mg Tab 1 Mg PO DAILY Januvia (Sitagliptin Phosphate) 50 Mg Tab 50 Mg PO DAILY Metformin ER (Metformin HCl) 500 Mg Camron 500 Mg PO DAILY With evening meal Allergies: Coded Allergies: No Known Allergies (Unverified , 02/19/17) Active Ordered Medications Current Medications Medications (Trade) Dose Ordered Sig/Destiny Route Start Time Stop Time Status Last Admin (NS Flush) 2 ml UNSCH PRN IV FLUSH 02/19/17 22:00 (NS Flush) 2 ml BID IV FLUSH 02/20/17 09:00 02/19/17 22:36 (Tylenol) 650 mg Q4H PRN PO 02/19/17 22:00 (Zofran Inj) 4 mg Q6H PRN IVP 02/19/17 22:00 (Dulcolax Supp) 10 mg DAILY PRN RECTAL 02/19/17 22:00 (Colace) 100 mg Q12HR PO 02/20/17 09:00 (Lovenox Inj) 40 mg Q24H SQ 02/20/17 09:00 (Narcan Inj) 0.4 mg UNSCH PRN IV 02/19/17 22:00 ([place] 5-325 Mg) 1 tab Q6H PRN PO 02/19/17 22:00 ([place] 10-325 Mg) 1 tab Q6H PRN PO 02/19/17 22:00 Family History Sister has DM and HTN Social History Lives with family denies ETOH use or tobacco use Physical Exam Vital Signs Vital Signs Date Time Temp Pulse Resp B/P Pulse Ox O2 Delivery O2 Flow Rate FiO2 02/20/17 00:37 97.5 107 20 157/69 95 02/20/17 00:02 98.5 103 16 119/55 97 02/19/17 23:08 16 02/19/17 22:46 93 16 121/57 97 Room Air 02/19/17 22:11 98 02/19/17 20:57 97 18 172/96 98 Room Air 02/19/17 20:17 81 16 98 Room Air 02/19/17 19:49 18 99 Room Air 02/19/17 19:39 98.4 99 16 148/65 99 Physical Exam GENERAL: This is an elderly 72 year old female patient, in no apparent distress. SKIN: No rashes, ecchymoses or lesions. Cool and dry. HEAD: Atraumatic. Normocephalic. No temporal or scalp tenderness. EYES: Extraocular motions intact. No scleral icterus. No injection or drainage. CARDIOVASCULAR: Regular rate and rhythm without murmurs, gallops, or rubs. RESPIRATORY: Clear to auscultation. Breath sounds equal bilaterally. No wheezes , rales, or rhonchi. GASTROINTESTINAL: Abdomen soft, non-tender, nondistended. No guarding. MUSCULOSKELETAL: Extremities without clubbing, cyanosis, or edema. No joint tenderness, effusion, or edema noted. No calf tenderness. Negative Homans sign bilaterally. NEUROLOGICAL: Awake and alert. No focal deficits noted. Motor and sensory grossly within normal limits. 3-4 out of 5 muscle strength in all muscle groups. soft slow speech. Laboratory Laboratory Tests Test 02/19/17 02/19/17 19:45 22:30 White Blood Count 8.6 Red Blood Count 3.34 Hemoglobin 9.8 Hematocrit 29.8 Mean Corpuscular Volume 89.2 Mean Corpuscular Hemoglobin 29.4 Mean Corpuscular Hemoglobin 32.9 Concent Red Cell Distribution Width 17.2 Platelet Count 174 Mean Platelet Volume 9.3 Neutrophils (%) (Auto) 76.8 Lymphocytes (%) (Auto) 7.6 Monocytes (%) (Auto) 6.8 Eosinophils (%) (Auto) 7.8 Basophils (%) (Auto) 1.0 Neutrophils # (Auto) 6.6 Lymphocytes # (Auto) 0.7 Monocytes # (Auto) 0.6 Eosinophils # (Auto) 0.7 Basophils # (Auto) 0.1 CBC Comment AUTO DIFF Differential Total Cells 100 Counted Neutrophils % (Manual) 78 Band Neutrophils % 3 Lymphocytes % 5 Monocytes % 6 Eosinophils % 7 Basophils % 1 Neutrophils # (Manual) 7.0 Differential Comment FINAL DIFF MANUAL Platelet Estimate NORMAL Platelet Morphology Comment NORMAL Red Cell Morphology Comment NORMAL Prothrombin Time 11.7 Prothromb Time International 1.1 Ratio Activated Partial 28.5 Thromboplast Time Sodium Level 131 Potassium Level 4.6 Chloride Level 97 Carbon Dioxide Level 23.8 Anion Gap 10 Blood Urea Nitrogen 16 Creatinine 1.09 Estimat Glomerular Filtration 49 Rate Random Glucose 192 Calcium Level 7.7 Total Bilirubin 0.7 Aspartate Amino Transf 27 (AST/SGOT) Alanine Aminotransferase 19 (ALT/SGPT) Alkaline Phosphatase 90 Total Creatine Kinase 85 Troponin I 0.02 Total Protein 5.9 Albumin 2.0 Urine Color YELLOW Urine Turbidity CLEAR Urine pH 7.0 Urine Specific [place] 1.013 Urine Protein NEG Urine Glucose (UA) NEG Urine Ketones NEG Urine Occult Blood NEG Urine Nitrite NEG Urine Bilirubin NEG Urine Urobilinogen 4.0 Urine Leukocyte Esterase TRACE Urine RBC LESS THAN 1 Urine WBC 1 Urine Squamous Epithelial <1 Cells Microscopic Urinalysis Comment CATH-CULT NOT IND Result Diagram: 02/19/17194402/19/171944 Imaging Last Impressions Head CT 02/19/171942 Signed Impressions: Service Date/Time: Sunday, February 19, 2017 20:05 - CONCLUSION: Subtle asymmetric low attenuation area in the deep white matter of the right parietal lobe of unclear significance. Further evaluation with MRI imaging with and without contrast is recommended. Cal Atkins MD Chest X-Ray 02/19/171942 Signed Impressions: Service Date/Time: Sunday, February 19, 2017 19:44 - CONCLUSION: Suboptimal rotated and kyphotic exam with apparent cardiomegaly and no definite acute cardiopulmonary disease. Cal Atkins MD Lower Extremity CT 02/19/17 0000 Signed Impressions: Service Date/Time: Sunday, February 19, 2017 20:11 - CONCLUSION: 1. Subacute fracture involving the left superior and inferior pubic rami. 2. The left hip is intact. 3. Degenerative change involving the lumbar spine with scoliosis. Cal Atkins MD Assessment and Plan Assessment and Plan This is a 72 year old female patient with a past medical history of HTN, hyperlipidemia, RA, OA and DM. Patient presents to emergency room. Patient suffered a mechanical fall on February 13, 2017, reports that she was seen in the emergency room and had x-rays of her left shoulder and her left hip which did not show any fractures. Patient was sent home with a prescription for pain medications. Family reports that since her fall, she has not been able to get out of bed, reports the patient complains of severe pain to her left hip. Reports that this morning, patient appeared altered and was "not her normal self." Left superior and inferior pelvic rami fracture. Patient with continued pain after fall CT lower extremities reviewed and reveals subacute fracture involving the left superior and inferior pelvic rami. The left hip is intact. Degenerative changes involving the lumbar spine and scoliosis. [place] as needed for pain Physical therapy consulted Altered mental status CT of the head reviewed and reveals Subtle asymmetric low attenuation area in the deep white matter of the right parietal lobe of unclear significance. Further evaluation with MRI imaging with and without contrast is recommended. MRI ordered and pending RN to perform bedside swallow evaluation Bed rest with head of bed flat at this time consult neurology Fall unclear etiology Some bilateral carotid arteries CT of the head reviewed as above MRI ordered and pending With static vital signs ordered 2-D echocardiogram ordered and pending Question of possible chest pain serial troponin to rule out ACS EKG ordered Rheumatoid arthritis- continue prednisone, methotrexate and Plaquenil GERD- Continue Protonix DVT prophylaxis with Lovenox Discussed with the ER provider, nursing and patient Written by Teetee Argueta, acting as scribe for Dr. Brasher on 02/20/17 at 04: 01. This note was transcribed by scribe [Teetee Argueta]. I, Dr. Cecilio Brasher personally performed the history, physical exam, and medical decision making; and confirmed the accuracy of the information in the transcribed note. Authenticated by Dr. Cecilio Brasher on 02/20/17 at 04:01. Teetee Argueta Feb 20, 2017 02:30 Cecilio Brasher MD March 11, 2017 04:56
[2017-02-20 04:17] LABS: AUTOMATED NEUTROPHIL # 6.5 TH/MM3 (1.8-7.7); BASOPHIL # 0.1 TH/MM3 (0-0.2); BASOPHIL % 0.7 % (0.0-2.0); EOSINOPHIL # 0.7 TH/MM3 (0-0.4); EOSINOPHIL % 7.7 % (0.0-4.0); HEMATOCRIT 30.2 % (35.0-46.0); HEMO FLAGS DIFF FINAL; LYMPH % 8.6 % (9.0-44.0); LYMPHOCYTE # 0.7 TH/MM3 (1.0-4.8); MEAN CELL VOLUME 89.3 FL (80.0-100.0); MEAN CORPUSCULAR HEMOGLOBIN 28.9 PG (27.0-34.0); MEAN CORPUSCULAR HGB CONC 32.3 % (32.0-36.0); MONO % 5.7 % (0.0-8.0); NEUT % 77.3 % (16.0-70.0); PLATELET COUNT 165 TH/MM3 (150-450); RED BLOOD COUNT 3.38 MIL/MM3 (4.00-5.30); RED CELL DISTRIBUTION WIDTH 17.3 % (11.6-17.2); WHITE BLOOD COUNT 8.5 TH/MM3 (4.0-11.0)
[2017-02-20 04:24] LABS: BICARBONATE 25.1 MEQ/L (21.0-32.0); POTASSIUM 4.3 MEQ/L (3.5-5.1)
[2017-02-20] MEDS: ACETAMINOPHEN/HYDROcodone 325 MG/5 MG TAB PO PRN ×2 (06:42→19:35)
[2017-02-20] MEDS: ENOXAPARIN SODIUM 40 MG/0.4 ML SYRINGE SQ SCH (08:01)
[2017-02-20] MEDS: HYDROXYCHLOROQUINE SULFATE 200 MG TAB PO SCH (08:02)
[2017-02-20] MEDS: PANTOPRAZOLE SOD 40 MG DELAYED RELEASE TAB PO SCH (08:02)
[2017-02-20] MEDS: predniSONE 1 MG TAB PO SCH (08:02)
[2017-02-20] MEDS: DOCUSATE SODIUM 100 MG CAP PO SCH ×2 (08:02→21:06)
[2017-02-20] MEDS ORDERED: CARVEDILOL 6.25 MG TAB PO SCH (09:00)
[2017-02-20] MEDS ORDERED: FUROSEMIDE 40 MG TAB PO SCH (09:00)
--- NOTE | 2017-02-20 09:54 | RADRPT ---
EXAM DATE/TIME: 02/20/2017 08:54 [facility] COMPARISON: No previous studies available for comparison. INDICATIONS : Syncope. MEDICAL HISTORY : Hypertension. Hypercholesterolemia. Osteoporosis. Diabetes. Arthritis. Measles. SURGICAL HISTORY : Kyphoplasty. Right knee surgery. ENCOUNTER: Initial ACUITY: 1 day PAIN SCORE: 4/10 LOCATION: Bilateral neck PEAK SYSTOLIC VELOCITIES (cm/sec): ICA/CCA RATIO: Right: 1.8 Left: 1.4 ICA: Right: 114 Left: 119 CCA: Right: 63 Left: 83 ECA: Right: 107 Left: 62 VERTEBRAL: Right: 90 antegrade Left: 69 antegrade Elevated flow velocities and ICA/CCA ratios have been found to correlate with increased degrees of vessel stenosis, calculated as percentage of diameter relative to a normal segment of distal ICA/CCA FINDINGS: RIGHT CAROTID: No significant stenosis is visualized. The waveforms are within normal limits. LEFT CAROTID: No significant stenosis is visualized. The waveforms are within normal limits. VERTEBRAL ARTERIES: Antegrade flow is seen in both vertebral arteries. MISCELLANEOUS: None. CONCLUSION: 1. No evidence for hemodynamically significant stenosis of either carotid artery. 2. Moderate calcific plaquing of the left carotid bulb. Jeremy Stanley MD on February 20, 2017 at 9:52 Board Certified Radiologist. This report was verified electronically.
[2017-02-20] MEDS ORDERED: GADODIAMIDE PF 287 MG/ML 5 ML VIAL (for RAD MRI) IV ONE (10:16)
--- NOTE | 2017-02-20 11:22 | RADRPT ---
EXAM DATE/TIME: 02/20/2017 10:02 [facility] COMPARISON: CT BRAIN W/O CONTRAST, February 19, 2017, 20:05. INDICATIONS : Altered mental status. Abnormal CT scan. CONTRAST: 12 cc Omniscan (gadodiamide) IV MEDICAL HISTORY : Hypertension. Osteoarthritis. SURGICAL HISTORY : Right knee. ENCOUNTER: Initial ACUITY: 2 day PAIN SCORE: 0/10 LOCATION: head TECHNIQUE: Multiplanar, multisequence MRI of the brain was performed both prior to and following the administrat ion of paramagnetic contrast. FINDINGS: CEREBRUM: The ventricles are normal for age. No evidence of midline shift, mass lesion, hemorrhage or acute in farction. No extraaxial fluid collections are seen. The pituitary gland and suprasellar cistern are normal in configuration. WHITE MATTER: The focal hypodensity identified in the right centrum semiovale on CT represents periventricular hype rintensity which is seen bilaterally and is characteristic of chronic microvascular ischemic change. There is no evidence of restricted diffusion, mass effect or abnormal enhancement. POSTERIOR FOSSA: The cerebellum and brainstem are intact. The 4th ventricle is midline. The cerebellopontine angle is unremarkable. The cerebellar tonsils are normal in position. DIFFUSION IMAGING: No focal areas of restricted diffusion are seen. No evidence of acute infarction. EXTRACRANIAL: The visualized portions of the orbits and paranasal sinuses are unremarkable. POST-CONTRAST: No abnormal areas of parenchymal or dural enhancement. No evidence of blood-brain barrier breakdown. CONCLUSION: Mild cerebral white matter disease characteristic of chronic microvascular ischemic c hange. Focal hypodensity in the right centrum semiovale is consistent with chronic microvascular disease. No evidence of acute infarct, hemorrhage, mass or abnormal enhancement. Abe Iraheta MD on February 20, 2017 at 11:07 Board Certified Radiologist. This report was verified electronically.
--- NOTE | 2017-02-20 11:57 | EKG ---
Date Performed: 02/19/2017 Time Performed: 20:36:43 PTAGE: 72 years EKG: Sinus rhythm WITH OCCASIONAL SUPRAVENTRICULAR PREMATURE COMPLEXES BORDERLINE ECG NO PREVIOUS TRACING DOCTOR: Sarbjit Carbone Interpretating Date/Time 02/20/2017 11:52:28
--- NOTE | 2017-02-20 12:44 | HHI.PR ---
Subjective Remarks Follow-up pelvic bones fracture/altered mental status change 02/20/17-patient seen and examined, complains of left hand. Alert and oriented 2. Afebrile. Objective Vitals Vital Signs Date Time Temp Pulse Resp B/P Pulse Ox O2 Delivery O2 Flow Rate FiO2 02/20/17 11:49 98.5 94 20 127/62 96 02/20/17 07:42 16 02/20/17 07:02 98.1 105 16 148/67 95 02/20/17 04:07 97.8 100 18 159/65 95 144/86 02/20/17 00:37 97.5 107 20 157/69 95 02/20/17 00:02 98.5 103 16 119/55 97 02/19/17 23:08 16 02/19/17 22:46 93 16 121/57 97 Room Air 02/19/17 22:11 98 02/19/17 20:57 97 18 172/96 98 Room Air 02/19/17 20:17 81 16 98 Room Air 02/19/17 19:49 18 99 Room Air 02/19/17 19:39 98.4 99 16 148/65 99 Result Diagram: 02/20/17 0339 02/20/17 0339 Imaging Last Impressions Carotid Artery Ultrasound 02/20/17 0000 Signed Impressions: Service Date/Time: Monday, February 20, 2017 08:54 - CONCLUSION: 1. No evidence for hemodynamically significant stenosis of either carotid artery. 2. Moderate calcific plaquing of the left carotid bulb. Jeremy Stanley MD Brain MRI 02/20/17 0000 Signed Impressions: Service Date/Time: Monday, February 20, 2017 10:02 - CONCLUSION: Mild cerebral white matter disease characteristic of chronic microvascular ischemic change. Focal hypodensity in the right centrum semiovale is consistent with chronic microvascular disease. No evidence of acute infarct, hemorrhage, mass or abnormal enhancement. Abe Iraheta MD Head CT 02/19/171942 Signed Impressions: Service Date/Time: Sunday, February 19, 2017 20:05 - CONCLUSION: Subtle asymmetric low attenuation area in the deep white matter of the right parietal lobe of unclear significance. Further evaluation with MRI imaging with and without contrast is recommended. Cal Atkins MD Chest X-Ray 02/19/171942 Signed Impressions: Service Date/Time: Sunday, February 19, 2017 19:44 - CONCLUSION: Suboptimal rotated and kyphotic exam with apparent cardiomegaly and no definite acute cardiopulmonary disease. Cal Atkins MD Lower Extremity CT 02/19/17 0000 Signed Impressions: Service Date/Time: Sunday, February 19, 2017 20:11 - CONCLUSION: 1. Subacute fracture involving the left superior and inferior pubic rami. 2. The left hip is intact. 3. Degenerative change involving the lumbar spine with scoliosis. Cal Atkins MD Objective Remarks GENERAL: NAD SKIN: Warm and dry. HEAD: Normocephalic. EYES: No scleral icterus. No injection or drainage. NECK: Supple, trachea midline. No JVD or lymphadenopathy. CARDIOVASCULAR: Regular rate and rhythm without murmurs, gallops, or rubs. RESPIRATORY: Breath sounds equal bilaterally. No accessory muscle use. GASTROINTESTINAL: Abdomen soft, non-tender, nondistended. MUSCULOSKELETAL: No cyanosis, or edema. BACK: Nontender without obvious deformity. No CVA tenderness. A/P Problem List: (1) Fracture of pubic ramus ICD Code: S32.599A Status: Acute (2) Toxic metabolic encephalopathy ICD Code: G92 Status: Acute Assessment and Plan 72-year-old female with Left superior and inferior pelvic rami fracture. Analgesics/[place] as needed for pain Physical therapy consulted Altered mental status CT of the head with Subtle asymmetric low attenuation area in the deep white matter of the right parietal lobe of unclear significance. MRI Brain noted Bed rest with head of bed flat at this time consult neurology Fall unclear etiology US bilateral carotid arteries CT of the head reviewed as above MRI Brain negative 2-D echocardiogram pending Rheumatoid arthritis- continue prednisone, methotrexate and Plaquenil GERD- Continue Protonix Problem Qualifiers (1) Fracture of pubic ramus: Qualified Code: S32.592A - Fracture of pubic ramus, left, closed, initial encounter Frank Watters MD Feb 20, 2017 12:44
[2017-02-20] MEDS: ACETAMINOPHEN/HYDROcodone 325 MG/10 MG TAB PO PRN ×2 (14:44→21:14)
--- NOTE | 2017-02-20 20:02 | EC ---
Study Study Date:02/20/2017 STUDY CONCLUSIONS SUMMARY - Procedure narrative: Image quality was poor. The study was technically limited due to poor acoustic window availability. - Left ventricle: The cavity size was normal. Systolic function was probably normal. The estimated ejection fraction was in the range of 50% to 55%. The study is not technically sufficient to allow evaluation of LV diastolic function. If LV function is below 40, please consider prescribing an ACEI or ARB or document rationale for non-use. PROCEDURE DATA STUDY STATUS: Elective. Procedure: Transthoracic echocardiography. Image quality was poor. The study was technically limited due to poor acoustic window availability. Scanning was performed from the parasternal, apical, and subcostal acoustic windows. Study completion: The patient tolerated the procedure well. Transthoracic echocardiography. M-mode, complete 2D, complete spectral Doppler, and color Doppler. Patient status: Inpatient. CARDIAC ANATOMY LEFT VENTRICLE: The cavity size was normal. Systolic function was probably normal. The estimated ejection fraction was in the range of 50% to 55%. Images were inadequate for LV wall motion assessment. The study is not technically sufficient to allow evaluation of LV diastolic function. AORTIC VALVE: The valve appears to be grossly normal. Doppler: There was no stenosis. No significant regurgitation. MITRAL VALVE: The valve appears to be grossly normal. Doppler: There was no evidence for stenosis. Trace regurgitation. RIGHT VENTRICLE: The cavity size was normal. PULMONIC VALVE: Not well visualized. TRICUSPID VALVE: The valve appears to be grossly normal. Doppler: There was no evidence for stenosis. No regurgitation. PERICARDIUM: There was no pericardial effusion. BASIC MEASUREMENTS ADULT Normal Left ventricle LV internal dimension, ED, chordal level, 46 mm 43-52 PLAX LV internal dimension, ES, chordal level, *38.1 mm 23-38 PLAX Fractional shortening, chordal level, PLAX *17 % >29 LV posterior wall thickness, ED 6.99 mm IVS/LVPW ratio, ED *1.47 <1.3 Ventricular septum Septal thickness, ED 10.3 mm Left atrium Anterior-posterior dimension 28 mm DOPPLER MEASUREMENTS ADULT Normal Main pulmonary artery Pressure, S 15 mm Hg =30 Aortic valve Peak velocity, S 157 cm/s Mitral valve Peak E-wave velocity 42.4 cm/s Peak A-wave velocity 96.7 cm/s Peak E/A ratio 0.4 Tricuspid valve Regurgitant peak velocity 160 cm/s Peak RV-RA gradient, S 10 mm Hg Maximal regurgitant velocity 160 cm/s Systemic veins Estimated CVP 5 mm Hg Right ventricle RV pressure, S 15 mm Hg <30 LEGEND: Mean values are shown as u=mean value. Asterisk (*) saldaña values outside specified normal range. Prepared and signed by Tino Estevez [id number]
[2017-02-20] MEDS: ATORVASTATIN 10 MG TAB PO SCH (21:05)
[2017-02-20] MEDS: traZODone HCL 50 MG TAB PO SCH (21:05)
[2017-02-20] MEDS: SODIUM CHLORIDE 0.9% FLUSH 10 ML FLUSH IV FLUSH SCH (21:06)
[2017-02-21 04:45] VITALS: BP 146/67; PULSE 102; RESP 20; TEMP 97.9; O2SAT 94
--- NOTE | 2017-02-21 06:02 | MB ---
cc: PAUL PERRY DATE OF CONSULTATION 02/20/2017 REASON FOR CONSULTATION Altered mental status. HISTORY OF PRESENT ILLNESS Ms. Han is a 72-year-old female with a past medical history of hypertension, hyperlipidemia, rheumatoid arthritis, osteoarthritis and diabetes mellitus who presents to the emergency room at [facility] after she sustained a mechanical fall last week and x-rays revealed no fractures at that time. The patient was sent back home with a prescription for pain medication and family reported that since that fall she was not able to get out of bed and reports severe pain in the left hip. , who was at the bedside, states that he witnessed her fall on the ground and become disoriented and she was, "not answering my questions correctly." The patient and state that she has had chronic balance issues and difficulty walking. The patient denies headache, blurred vision, dizziness, nausea, vomiting, postictal confusion or foaming from the mouth, tongue-biting or loss of bladder control. The denies any witnessed convulsions, loss of bladder or bowel during the episode where she was disoriented or postictal confusional state. The stated that she had sustained multiple falls but this is the first time she became transiently disoriented. There is no reported weakness of an extremity or numbness of an extremity during the episode. REVIEW OF SYSTEMS A 12-point review of systems is negative except for what is stated in the HPI. PAST MEDICAL HISTORY 1. Hypertension. 2. Hyperlipidemia. 3. Rheumatoid arthritis. 4. Osteoarthritis. 5. Diabetes mellitus. 6. Chronic unsteadiness. PAST SURGICAL HISTORY Right knee surgery. MEDICATIONS 1. Tylenol #3. 2. Zofran. 3. Folic. 4. Diclofenac sodium. 5. Trazodone. 6. Pantoprazole. 7. Alendronate. 8. Hydroxychloroquine. 9. Methotrexate. 10. Atorvastatin. 11. Furosemide. 12. Carvedilol. 13. Prednisone. 14. Januvia. 15. Metformin. ALLERGIES No known allergies. FAMILY HISTORY Sister with diabetes mellitus and hypertension. SOCIAL HISTORY Lives with family. Denies ethanol, tobacco or illicit drug abuse. PHYSICAL EXAMINATION GENERAL: The patient is a poor historian, not in apparent distress. Softly spoken. HEENT: Atraumatic, normocephalic. Intact vision, intact hearing. CARDIOVASCULAR: Regular rate and rhythm. RESPIRATORY: Clear to auscultation. No wheezes. GASTROINTESTINAL: Soft abdomen. No tenderness. MUSCULOSKELETAL: Extremities without clubbing, cyanosis or edema. Moves all four extremities. NEUROLOGICAL: Awake, alert, oriented to time, person and place. No dysarthria and no dysphagia. Intact memory. Cranial nerves II-XII are grossly intact. Upper extremities 5/5 bilateral, symmetrical. No abnormal movement normal tone with some give-away due to pain. Lower extremities unable to assess accurately the muscle strength because of weakness and fracture in the left lower extremity. Reflexes 2+ bilateral and symmetrical. Plantars are bilaterally downgoing. Sensation is intact bilateral symmetrical. PSYCHOLOGICAL: Normal mood and behavior. No hallucination . LABORATORY DATA White blood cells 8.5, hemoglobin 9.8, platelets 165. Sodium 133, potassium 4.3 , calcium 7.8, AST 27, ALT 19, alkaline phosphatase 90. Troponin 0.12. Total protein 5.9. DIAGNOSTICS IMAGING - Lower extremity CT: reveals subacute fracture involving the left superior and inferior pubic ramus. The left hip is intact. Degenerative change involving the lumbar spine with scoliosis. - CT HEAD Without contrast. Subtle asymmetric low attenuation area in the deep white matter of the right parietal lobe of unclear significance. - BRAIN MRI Mild cerebral white matter disease characteristic of chronic microvascular ischemic changes. Focal hypodensity in the centrum semiovale is consistent with chronic microvascular disease. No evidence of acute infarct, hemorrhage, mass or abnormal enhancement - CAROTID ULTRASOUND No evidence of hemodynamically significant stenosis of either carotid artery. Moderate calcific plaque of the left carotid bulb. DIAGNOSTIC IMPRESSION 1. Encephalopathy, resolved. 2. Fracture of the left pubic/pelvic ramus status post fall . 3. Rheumatoid arthritis on prednisone, methotrexate and Plaquenil. PLAN - Neurologic examination is stable, nonfocal. - Neuro and radiological investigations are unremarkable. - PT and OT recommendations are appreciated. - The patient may follow-up with Neurology as an outpatient. - Please call for any questions. Thank you for the opportunity to participate in the care of your patient. Paul Perry MD RGO/DAYANARA /11:22 PM /5:39 AM DWAYNE
[2017-02-21 07:56] VITALS: BP 150/81; PULSE 160; RESP 22; TEMP 98.3
[2017-02-21] MEDS: HYDROXYCHLOROQUINE SULFATE 200 MG TAB PO SCH (08:10)
[2017-02-21] MEDS: DOCUSATE SODIUM 100 MG CAP PO SCH ×2 (08:10→20:03)
[2017-02-21] MEDS: ACETAMINOPHEN/HYDROcodone 325 MG/10 MG TAB PO PRN ×2 (08:10→20:02)
[2017-02-21] MEDS: predniSONE 1 MG TAB PO SCH (08:10)
[2017-02-21] MEDS: PANTOPRAZOLE SOD 40 MG DELAYED RELEASE TAB PO SCH (08:10)
[2017-02-21] MEDS: SODIUM CHLORIDE 0.9% FLUSH 10 ML FLUSH IV FLUSH SCH ×2 (08:11→20:02)
[2017-02-21] MEDS: ENOXAPARIN SODIUM 40 MG/0.4 ML SYRINGE SQ SCH (08:11)
--- NOTE | 2017-02-21 08:46 | HHI.PR ---
Subjective Remarks Follow-up pelvic bones fracture/altered mental status change 02/20/17-patient seen and examined, complains of left hand. Alert and oriented 2. Afebrile. 02/21/17-patient seen and examined, states it hurts all over, afebrile and no acute event overnight. Alert and oriented 2. Objective Vitals Vital Signs Date Time Temp Pulse Resp B/P Pulse Ox O2 Delivery O2 Flow Rate FiO2 02/21/17 07:56 98.3 160 22 150/81 02/21/17 07:54 02/21/17 04:45 97.9 102 20 146/67 94 02/20/17 23:42 98.6 96 18 122/0 02/20/17 22:25 16 02/20/17 21:06 14 02/20/17 19:09 96.9 94 18 115/67 95 02/20/17 14:51 98.7 90 18 141/65 95 02/20/17 11:49 98.5 94 20 127/62 96 I/O 02/20/17 02/20/17 02/20/17 02/21/17 02/21/17 02/21/17 07:00 15:00 23:00 07:00 15:00 23:00 Intake Total 480 ml Balance 480 ml Intake Oral 480 ml # Voids 2 2 Result Diagram: 02/20/17 0339 02/20/17 0339 Imaging Last Impressions Carotid Artery Ultrasound 02/20/17 0000 Signed Impressions: Service Date/Time: Monday, February 20, 2017 08:54 - CONCLUSION: 1. No evidence for hemodynamically significant stenosis of either carotid artery. 2. Moderate calcific plaquing of the left carotid bulb. Jeremy Stanley MD Brain MRI 02/20/17 0000 Signed Impressions: Service Date/Time: Monday, February 20, 2017 10:02 - CONCLUSION: Mild cerebral white matter disease characteristic of chronic microvascular ischemic change. Focal hypodensity in the right centrum semiovale is consistent with chronic microvascular disease. No evidence of acute infarct, hemorrhage, mass or abnormal enhancement. Abe Iraheta MD Head CT 02/19/17 194 Signed Impressions: Service Date/Time: Sunday, February 19, 2017 20:05 - CONCLUSION: Subtle asymmetric low attenuation area in the deep white matter of the right parietal lobe of unclear significance. Further evaluation with MRI imaging with and without contrast is recommended. Cal Atkins MD Chest X-Ray 02/19/17 1943 Signed Impressions: Service Date/Time: Sunday, February 19, 2017 19:44 - CONCLUSION: Suboptimal rotated and kyphotic exam with apparent cardiomegaly and no definite acute cardiopulmonary disease. Cal Atkins MD Lower Extremity CT 02/19/17 0000 Signed Impressions: Service Date/Time: Sunday, February 19, 2017 20:11 - CONCLUSION: 1. Subacute fracture involving the left superior and inferior pubic rami. 2. The left hip is intact. 3. Degenerative change involving the lumbar spine with scoliosis. Cal Atkins MD Objective Remarks GENERAL: NAD SKIN: Warm and dry. HEAD: Normocephalic. EYES: No scleral icterus. No injection or drainage. NECK: Supple, trachea midline. No JVD or lymphadenopathy. CARDIOVASCULAR: Regular rate and rhythm without murmurs, gallops, or rubs. RESPIRATORY: Breath sounds equal bilaterally. No accessory muscle use. GASTROINTESTINAL: Abdomen soft, non-tender, nondistended. MUSCULOSKELETAL: No cyanosis, or edema. BACK: Nontender without obvious deformity. No CVA tenderness. Procedures none A/P Problem List: (1) Fracture of pubic ramus ICD Code: S32.599A Status: Acute (2) Toxic metabolic encephalopathy ICD Code: G92 Status: Acute Assessment and Plan 72-year-old female with Left superior and inferior pelvic rami fracture. Analgesics/[place] as needed for pain Physical therapy consulted Encephalopathy-resolved CT of the head with Subtle asymmetric low attenuation area in the deep white matter of the right parietal lobe of unclear significance. MRI Brain noted Appreciate input from neurology Fall unclear etiology US bilateral carotid arteries noted without any acute finding CT of the head reviewed as above MRI Brain negative 2-D echocardiogram Rheumatoid arthritis- continue prednisone, methotrexate and Plaquenil Diabetes type 2: Continue to hold oral hypoglycemic agents, treatment with insulin sliding scale with fingerstick blood glucose monitoring Hypertension: Resume Coreg 6.25 mg by mouth twice a day GERD- Continue Protonix DVT prophylaxis: Bilateral SCDs Discharge Planning Discharged to SNF Problem Qualifiers (1) Fracture of pubic ramus: Qualified Code: S32.592A - Fracture of pubic ramus, left, closed, initial encounter Pontey,Frank MD Feb 21, 2017 08:46
--- NOTE | 2017-02-21 08:52 | HHI.DS ---
Discharge Summary Admission Date Feb 19, 2017 at 22:09 Discharge Date: Feb 21, 2017 Admitting Diagnosis Pubic rami fractures (1) Fracture of pubic ramus ICD Code: S32.599A (2) Toxic metabolic encephalopathy ICD Code: G92 Procedures none Brief History - From Admission This is a 72 year old female patient with a past medical history of HTN, hyperlipidemia, RA, OA and DM. Patient presents to emergency room. Patient suffered a mechanical fall on February 13, 2017, reports that she was seen in the emergency room and had x-rays of her left shoulder and her left hip which did not show any fractures. Patient was sent home with a prescription for pain medications. Family reports that since her fall, she has not been able to get out of bed, reports the patient complains of severe pain to her left hip. Reports that this morning, patient appeared altered and was "not her normal self." Reports the patient is normally alert and oriented 3, reports that she did not know her birthday today. Reports no fevers or chills, no chest pain or shortness of breath. On further questioning patient reports that she had nausea, chest pain, diaphoresis and dizziness prior to her fall on February 13, 2017. Patient reports that she has had vomiting for 2-3 days prior to the fall. Patient denies loss of consciousness change in vision head trauma at the time of the fall. Patient at this time denies chest pain shortness of breath nausea vomiting fevers or chills. Patient is soft-spoken and seems to have a hard time recalling details regarding health history, recent fall or exact reason she came to the hospital today. Patient appears to be a poor historian therefore information gathered from patient as well as prior computerized charting. CBC/BMP: 02/20/17 0339 02/20/17 0339 Significant Findings Laboratory Tests Test 02/19/17 02/19/17 02/20/17 02/20/17 19:45 22:30 03:39 15:49 Red Blood Count 3.34 MIL/MM3 3.38 MIL/MM3 (4.00-5.30) (4.00-5.30) Hemoglobin 9.8 GM/DL 9.8 GM/DL (11.6-15.3) (11.6-15.3) Hematocrit 29.8 % 30.2 % (35.0-46.0) (35.0-46.0) Neutrophils (%) (Auto) 76.8 % 77.3 % (16.0-70.0) (16.0-70.0) Lymphocytes (%) (Auto) 7.6 % 8.6 % (9.0-44.0) (9.0-44.0) Eosinophils (%) (Auto) 7.8 % (0.0-4.0) 7.7 % (0.0-4.0) Lymphocytes # (Auto) 0.7 TH/MM3 0.7 TH/MM3 (1.0-4.8) (1.0-4.8) Eosinophils # (Auto) 0.7 TH/MM3 0.7 TH/MM3 (0-0.4) (0-0.4) Neutrophils % (Manual) 78 % (16-70) Lymphocytes % 5 % (9-44) Eosinophils % 7 % (0-4) Prothrombin Time 11.7 SEC (9.8-11.6) Sodium Level 131 MEQ/L 133 MEQ/L (136-145) (136-145) Chloride Level 97 MEQ/L (98-107) Creatinine 1.09 MG/DL (0.50-1.00) Estimat Glomerular Filtration 49 ML/MIN (>89) 60 ML/MIN (>89) Rate Random Glucose 192 MG/DL 140 MG/DL (74-106) (74-106) Calcium Level 7.7 MG/DL 7.8 MG/DL (8.5-10.1) (8.5-10.1) Total Protein 5.9 GM/DL (6.4-8.2) Albumin 2.0 GM/DL (3.4-5.0) Urine Urobilinogen 4.0 MG/DL (LESS THAN 2.0) Urine Leukocyte Esterase TRACE (NEG) Red Cell Distribution Width 17.3 % (11.6-17.2) Troponin I LESS THAN 0.02 LESS THAN 0.02 NG/ML NG/ML (0.02-0.05) (0.02-0.05) Imaging Last Impressions Carotid Artery Ultrasound 02/20/17 0000 Signed Impressions: Service Date/Time: Monday, February 20, 2017 08:54 - CONCLUSION: 1. No evidence for hemodynamically significant stenosis of either carotid artery. 2. Moderate calcific plaquing of the left carotid bulb. Jeremy Stanley MD Brain MRI 02/20/17 0000 Signed Impressions: Service Date/Time: Monday, February 20, 2017 10:02 - CONCLUSION: Mild cerebral white matter disease characteristic of chronic microvascular ischemic change. Focal hypodensity in the right centrum semiovale is consistent with chronic microvascular disease. No evidence of acute infarct, hemorrhage, mass or abnormal enhancement. Abe Iraheta MD Head CT 02/19/171942 Signed Impressions: Service Date/Time: Sunday, February 19, 2017 20:05 - CONCLUSION: Subtle asymmetric low attenuation area in the deep white matter of the right parietal lobe of unclear significance. Further evaluation with MRI imaging with and without contrast is recommended. Cal Atkins MD Chest X-Ray 02/19/171942 Signed Impressions: Service Date/Time: Sunday, February 19, 2017 19:44 - CONCLUSION: Suboptimal rotated and kyphotic exam with apparent cardiomegaly and no definite acute cardiopulmonary disease. Cal Atkins MD Lower Extremity CT 02/19/17 Signed Impressions: Service Date/Time: Sunday, February 19, 2017 20:11 - CONCLUSION: 1. Subacute fracture involving the left superior and inferior pubic rami. 2. The left hip is intact. 3. Degenerative change involving the lumbar spine with scoliosis. Cal Atkins MD PE at Discharge GENERAL: NAD SKIN: Warm and dry. HEAD: Normocephalic. EYES: No scleral icterus. No injection or drainage. NECK: Supple, trachea midline. No JVD or lymphadenopathy. CARDIOVASCULAR: Regular rate and rhythm without murmurs, gallops, or rubs. RESPIRATORY: Breath sounds equal bilaterally. No accessory muscle use. GASTROINTESTINAL: Abdomen soft, non-tender, nondistended. MUSCULOSKELETAL: No cyanosis, or edema. BACK: Nontender without obvious deformity. No CVA tenderness. Hospital Course Left superior and inferior pelvic rami fracture. Analgesics/[place] as needed for pain Physical therapy consulted Encephalopathy-resolved CT of the head with Subtle asymmetric low attenuation area in the deep white matter of the right parietal lobe of unclear significance. MRI Brain noted and negative Appreciate input from neurology Fall unclear etiology US bilateral carotid arteries noted without any acute finding CT of the head reviewed as above MRI Brain negative 2-D echocardiogram Rheumatoid arthritis- continue prednisone, methotrexate and Plaquenil Diabetes type 2: Continue to hold oral hypoglycemic agents, treatment with insulin sliding scale with fingerstick blood glucose monitoring Hypertension: Coreg 6.25 mg by mouth twice a day GERD- Continue Protonix DVT prophylaxis: Bilateral SCDs Pt Condition on Discharge: Stable Discharge Disposition: Discharge to SNF Discharge Time: > 30 minutes Discharge Instructions DIET: Follow Instructions for: Diabetic Diet Activities you can perform: Regular-No Restrictions Follow up Referrals: PCP Follow-up - 2-3 Days Continued Medications: Alendronate (Alendronate) 70 Mg Tab 70 MG PO Q7D [place]osis Treatment #4 Ref 0 TAB Atorvastatin (Atorvastatin) 10 Mg Tab 10 MG PO HS Cholesterol Management #30 Ref 0 TAB Carvedilol (Carvedilol) 6.25 Mg Tab 6.25 MG PO BID #60 Ref [address]odium [address] (Diclofenac Sodium DR) 75 Mg Tabdr 75 MG PO BID Ref 0 TAB Folic Acid (Folic Acid) 5 Mg Cap 1 MG PO DAILY Nutritional Supplement Ref 0 CAP Furosemide (Furosemide) 40 Mg Tab 40 MG PO DAILY #30 Ref 0 TAB Hydroxychloroquine (Hydroxychloroquine) 200 Mg Tab 200 MG PO DAILY Takw with food #30 Ref 0 TAB Metformin ER (Metformin ER) 500 Mg Camron 500 MG PO DAILY With evening meal Blood Sugar Management Ref 0 TAB Methotrexate (Methotrexate) 2.5 Mg Tab 25 MG PO WEEKLY Ref 0 TAB Pantoprazole (Pantoprazole) 40 Mg Tab 40 MG PO DAILY Reflux #30 Ref 0 TAB Prednisone (Prednisone) 1 Mg Tab 1 MG PO DAILY Ref 0 TAB Sitagliptin (Januvia) 50 Mg Tab 50 MG PO DAILY Blood Sugar Management #30 Ref 0 TAB Trazodone (Trazodone) 50 Mg Tab 50 MG PO HS Control Depression Ref 0 TAB Discontinued Medications: Acetaminophen-Codeine (Tylenol-Codeine #3) 300-30 mg Tab 1 TAB PO Q4H PRN PAIN #12 Ref 0 TAB Ondansetron Odt (Zofran Odt) 4 Mg Tab 4 MG SL Q8HR PRN Nausea/Vomiting #10 Ref 0 TAB Frank Watters MD Feb 21, 2017 08:52
[2017-02-21] MEDS ORDERED: DEXTROSE 50% IN WATER 50 ML VIAL(D50) IV PUSH PRN (09:00)
[2017-02-21] MEDS ORDERED: GLUCAGON 1 MG/ML VIAL OTHER PRN (09:00)
[2017-02-21] MEDS: INSULIN ASPART SUPPLEMENTAL SCALE SQ SCH ×3 (11:00→20:02)
[2017-02-21] MEDS: IBUPROFEN 400 MG TAB PO SCH ×4 (11:19→23:18)
[2017-02-21] MEDS: CARVEDILOL 6.25 MG TAB PO SCH ×2 (11:20→20:03)
[2017-02-21 11:52] VITALS: BP 105/71; PULSE 113; RESP 22; TEMP 98.1; O2SAT 95
[2017-02-21 14:22] VITALS: BP 114/53; PULSE 103; RESP 22; TEMP 98.9; O2SAT 94
[2017-02-21] MEDS ORDERED: CYCLOBENZAPRINE HCL 10 MG TAB PO PRN (15:30)
[2017-02-21] MEDS ORDERED: PILL SPLITTER OTHER PRN (15:45)
[2017-02-21 19:49] VITALS: BP 104/51; PULSE 95; RESP 20; TEMP 98.4; O2SAT 97
[2017-02-21] MEDS: NORTRIPTYLINE HCL 25 MG CAP PO SCH (20:03)
[2017-02-21] MEDS: traZODone HCL 50 MG TAB PO SCH (20:03)
[2017-02-21] MEDS: ATORVASTATIN 10 MG TAB PO SCH (20:03)
[2017-02-22] VITALS (8 sets, daily range): BP systolic 100–157; BP diastolic 61–72; PULSE 89–118; RESP 18–20; TEMP 96.1–98.6; O2SAT 94–100
[2017-02-22] MEDS: IBUPROFEN 400 MG TAB PO SCH ×3 (05:09→18:36)
[2017-02-22] MEDS: INSULIN ASPART SUPPLEMENTAL SCALE SQ SCH ×4 (05:56→20:15)
[2017-02-22] MEDS ORDERED: RESP: IPRATROPIUM 0.5 MG/2.5 ML NEB NEB ONE (06:15)
--- NOTE | 2017-02-22 08:12 | HHI.PR ---
Subjective Remarks Follow-up pelvic bones fracture/altered mental status change 02/20/17-patient seen and examined, complains of left hand. Alert and oriented 2. Afebrile. 02/21/17-patient seen and examined, states it hurts all over, afebrile and no acute event overnight. Alert and oriented 2. 02/22/17-patient seen and examined, reports some improvement of pain. Had a good night sleep Objective Vitals Vital Signs Date Time Temp Pulse Resp B/P Pulse Ox O2 Delivery O2 Flow Rate FiO2 02/22/17 07:37 96.1 104 18 121/66 94 02/22/17 06:28 102 18 143/65 100 02/22/17 06:19 100 2.00 02/22/17 04:31 98.6 111 20 157/72 95 02/22/17 00:56 97.8 100 20 157/70 99 02/21/17 21:23 16 02/21/17 20:01 16 02/21/17 19:49 98.4 95 20 104/51 97 02/21/17 14:22 98.9 103 22 114/53 94 02/21/17 11:52 98.1 113 22 105/71 95 Result Diagram: 02/20/17 0339 02/20/17 0339 Objective Remarks GENERAL: NAD SKIN: Warm and dry. HEAD: Normocephalic. EYES: No scleral icterus. No injection or drainage. NECK: Supple, trachea midline. No JVD or lymphadenopathy. CARDIOVASCULAR: Regular rate and rhythm without murmurs, gallops, or rubs. RESPIRATORY: Breath sounds equal bilaterally. No accessory muscle use. GASTROINTESTINAL: Abdomen soft, non-tender, nondistended. MUSCULOSKELETAL: No cyanosis, or edema. BACK: Nontender without obvious deformity. No CVA tenderness. Procedures none A/P Problem List: (1) Fracture of pubic ramus ICD Code: S32.599A Status: Acute (2) Toxic metabolic encephalopathy ICD Code: G92 Status: Acute Assessment and Plan 72-year-old female with Left superior and inferior pelvic rami fracture. Analgesics/[place] as needed for pain Physical therapy consulted Continue with ibuprofen scheduled, Flexeril when necessary and Pamelor 25 mg at bedtime Encephalopathy-resolved CT of the head with Subtle asymmetric low attenuation area in the deep white matter of the right parietal lobe of unclear significance. MRI Brain noted Appreciate input from neurology Fall unclear etiology US bilateral carotid arteries noted without any acute finding CT of the head reviewed as above MRI Brain negative 2-D echocardiogram noted Rheumatoid arthritis- continue prednisone, methotrexate and Plaquenil Diabetes type 2: Continue to hold oral hypoglycemic agents, treatment with insulin sliding scale with fingerstick blood glucose monitoring Hypertension: Continue Coreg 6.25 mg by mouth twice a day GERD- Continue Protonix DVT prophylaxis: Bilateral SCDs Discharge Planning Discharged to SNF Problem Qualifiers (1) Fracture of pubic ramus: Qualified Code: S32.592A - Fracture of pubic ramus, left, closed, initial encounter Frank Watters MD Feb 22, 2017 08:12
[2017-02-22] MEDS ORDERED: IBUP400T20 PO (08:14)
[2017-02-22] MEDS ORDERED: NORT25CA PO (08:14)
[2017-02-22] MEDS ORDERED: CYCL1TAB29 PO (08:14)
[2017-02-22] MEDS: PANTOPRAZOLE SOD 40 MG DELAYED RELEASE TAB PO SCH (09:00)
[2017-02-22] MEDS: ACETAMINOPHEN/HYDROcodone 325 MG/5 MG TAB PO PRN (09:48)
[2017-02-22] MEDS: SODIUM CHLORIDE 0.9% FLUSH 10 ML FLUSH IV FLUSH SCH ×3 (09:48→20:19)
[2017-02-22] MEDS: CARVEDILOL 6.25 MG TAB PO SCH ×2 (09:48→20:16)
[2017-02-22] MEDS: DOCUSATE SODIUM 100 MG CAP PO SCH ×2 (09:48→20:16)
[2017-02-22] MEDS: HYDROXYCHLOROQUINE SULFATE 200 MG TAB PO SCH (09:48)
[2017-02-22] MEDS: ENOXAPARIN SODIUM 40 MG/0.4 ML SYRINGE SQ SCH (09:48)
[2017-02-22] MEDS: predniSONE 1 MG TAB PO SCH (09:48)
[2017-02-22] MEDS: BISACODYL 10 MG SUPP RECTAL PRN (18:36)
[2017-02-22] MEDS: NORTRIPTYLINE HCL 25 MG CAP PO SCH (20:16)
[2017-02-22] MEDS: ATORVASTATIN 10 MG TAB PO SCH (20:16)
[2017-02-22] MEDS: traZODone HCL 50 MG TAB PO SCH (20:16)
[2017-02-23] MEDS: IBUPROFEN 400 MG TAB PO SCH ×5 (00:54→23:58)
[2017-02-23] MEDS: ACETAMINOPHEN/HYDROcodone 325 MG/5 MG TAB PO PRN ×2 (00:54→06:14)
[2017-02-23 01:11] VITALS: BP 119/75; PULSE 104; RESP 18; TEMP 97.8; O2SAT 97
[2017-02-23] MEDS: INSULIN ASPART SUPPLEMENTAL SCALE SQ SCH ×4 (06:13→20:11)
[2017-02-23 06:21] VITALS: BP 109/58; PULSE 107; RESP 18; TEMP 97.1; O2SAT 95
[2017-02-23 08:25] VITALS: BP 100/53; PULSE 77; RESP 18; TEMP 97.2; O2SAT 96
[2017-02-23] MEDS: CARVEDILOL 6.25 MG TAB PO SCH ×2 (08:35→20:09)
--- NOTE | 2017-02-23 08:49 | HHI.PR ---
Subjective Remarks Follow-up pelvic bones fracture/altered mental status change 02/20/17-patient seen and examined, complains of left hand. Alert and oriented 2. Afebrile. 02/21/17-patient seen and examined, states it hurts all over, afebrile and no acute event overnight. Alert and oriented 2. 02/22/17-patient seen and examined, reports some improvement of pain. Had a good night sleep 02/23/17-patient seen and examined, no acute event overnight, only complaints of back pain. Objective Vitals Vital Signs Date Time Temp Pulse Resp B/P Pulse Ox O2 Delivery O2 Flow Rate FiO2 02/23/17 08:25 97.2 77 18 100/53 96 02/23/17 06:21 97.1 107 18 109/58 95 02/23/17 01:11 97.8 104 18 119/75 97 02/22/17 19:19 97.9 100 20 119/62 94 02/22/17 16:39 97.0 89 18 100/61 95 02/22/17 13:56 16 02/22/17 12:20 96.9 118 18 139/68 96 02/22/17 10:48 16 Result Diagram: 02/20/17 0339 02/20/17 0339 Objective Remarks GENERAL: NAD SKIN: Warm and dry. HEAD: Normocephalic. EYES: No scleral icterus. No injection or drainage. NECK: Supple, trachea midline. No JVD or lymphadenopathy. CARDIOVASCULAR: Regular rate and rhythm without murmurs, gallops, or rubs. RESPIRATORY: Breath sounds equal bilaterally. No accessory muscle use. GASTROINTESTINAL: Abdomen soft, non-tender, nondistended. MUSCULOSKELETAL: No cyanosis, or edema. BACK: Nontender without obvious deformity. No CVA tenderness. Procedures none A/P Problem List: (1) Fracture of pubic ramus ICD Code: S32.599A Status: Acute (2) Toxic metabolic encephalopathy ICD Code: G92 Status: Acute Assessment and Plan 72-year-old female with Left superior and inferior pelvic rami fracture. Analgesics/[place] as needed for pain Physical therapy to treat and eval Continue with ibuprofen scheduled, Flexeril when necessary and Pamelor 25 mg at bedtime Encephalopathy-resolved CT of the head with Subtle asymmetric low attenuation area in the deep white matter of the right parietal lobe of unclear significance. MRI Brain noted Appreciate input from neurology who has signed off Fall unclear etiology US bilateral carotid arteries noted without any acute finding CT of the head reviewed as above MRI Brain negative 2-D echocardiogram noted Rheumatoid arthritis- continue prednisone, methotrexate and Plaquenil Diabetes type 2: Continue to hold oral hypoglycemic agents, treatment with insulin sliding scale with fingerstick blood glucose monitoring Hypertension: Continue Coreg 6.25 mg by mouth twice a day GERD- Continue Protonix DVT prophylaxis: Bilateral SCDs Discharge Planning Patient is ready for Discharge to SNF Problem Qualifiers (1) Fracture of pubic ramus: Qualified Code: S32.592A - Fracture of pubic ramus, left, closed, initial encounter Frank Watters MD Feb 23, 2017 08:49
[2017-02-23] MEDS: SODIUM CHLORIDE 0.9% FLUSH 10 ML FLUSH IV FLUSH SCH ×3 (09:00→20:13)
[2017-02-23] MEDS: DOCUSATE SODIUM 100 MG CAP PO SCH ×2 (09:00→20:09)
[2017-02-23] MEDS: PANTOPRAZOLE SOD 40 MG DELAYED RELEASE TAB PO SCH (09:00)
[2017-02-23] MEDS: HYDROXYCHLOROQUINE SULFATE 200 MG TAB PO SCH (10:06)
[2017-02-23] MEDS: ENOXAPARIN SODIUM 40 MG/0.4 ML SYRINGE SQ SCH (10:06)
[2017-02-23] MEDS: predniSONE 1 MG TAB PO SCH (10:06)
--- NOTE | 2017-02-23 13:39 | HHI.FF ---
Face to Face Verification Diagnosis: (1) Fracture of pubic ramus (2) Toxic metabolic encephalopathy (3) DM2 (diabetes mellitus, type 2) (4) Hypertension, accelerated Physical Therapy Order: Evaluate and Treat Home Health Nursing Order: Signs/symptoms of disease process I have seen patient Maryjo Han on 02/23/17. My clinical findings support the need for the requested home health care services because: Deconditioned w/ increased weakness I certify that my clinical findings support that this patient is homebound because: Unsteady gait/balance Poor cardiac reserve Frank Watters MD Feb 23, 2017 13:39
[2017-02-23 16:28] VITALS: BP 116/75; PULSE 105; RESP 18; O2SAT 99
[2017-02-23 19:40] VITALS: BP 110/53; PULSE 87; RESP 18; TEMP 98.3; O2SAT 95
[2017-02-23] MEDS: ATORVASTATIN 10 MG TAB PO SCH (20:09)
[2017-02-23] MEDS: traZODone HCL 50 MG TAB PO SCH (20:09)
[2017-02-23] MEDS: NORTRIPTYLINE HCL 25 MG CAP PO SCH (20:09)
[2017-02-24 00:19] VITALS: BP 108/55; PULSE 116; RESP 18; TEMP 97.9; O2SAT 97
[2017-02-24 04:18] VITALS: BP 114/59; PULSE 113; RESP 18; TEMP 98.6; O2SAT 98
[2017-02-24] MEDS: IBUPROFEN 400 MG TAB PO SCH ×3 (05:44→18:00)
[2017-02-24] MEDS: INSULIN ASPART SUPPLEMENTAL SCALE SQ SCH ×4 (06:45→20:34)
[2017-02-24 07:55] VITALS: BP 121/62; PULSE 113; RESP 18; TEMP 97.9; O2SAT 95
[2017-02-24] MEDS: DOCUSATE SODIUM 100 MG CAP PO SCH ×2 (08:55→20:28)
[2017-02-24] MEDS: SODIUM CHLORIDE 0.9% FLUSH 10 ML FLUSH IV FLUSH SCH ×2 (08:55→20:27)
[2017-02-24] MEDS: HYDROXYCHLOROQUINE SULFATE 200 MG TAB PO SCH (09:24)
[2017-02-24] MEDS: ENOXAPARIN SODIUM 40 MG/0.4 ML SYRINGE SQ SCH (09:24)
[2017-02-24] MEDS: PANTOPRAZOLE SOD 40 MG DELAYED RELEASE TAB PO SCH (09:24)
[2017-02-24] MEDS: predniSONE 1 MG TAB PO SCH (09:25)
[2017-02-24] MEDS: CARVEDILOL 6.25 MG TAB PO SCH ×2 (09:25→20:28)
--- NOTE | 2017-02-24 11:43 | HHI.PR ---
Subjective Remarks Follow-up pelvic bones fracture/altered mental status change 02/20/17-patient seen and examined, complains of left hand. Alert and oriented 2. Afebrile. 02/21/17-patient seen and examined, states it hurts all over, afebrile and no acute event overnight. Alert and oriented 2. 02/22/17-patient seen and examined, reports some improvement of pain. Had a good night sleep 02/23/17-patient seen and examined, no acute event overnight, only complaints of back pain. 02/24/17-patient seen and examined, this morning she appears somehow slow in her response however alert and oriented to self and place. Daughters by the bedside. Discharge on 02/23/17 was held secondary to patient's requiring 3 people to get out of bed Objective Vitals Vital Signs Date Time Temp Pulse Resp B/P Pulse Ox O2 Delivery O2 Flow Rate FiO2 02/24/17 07:55 97.9 113 18 121/62 95 02/24/17 04:18 98.6 113 18 114/59 98 02/24/17 00:19 97.9 116 18 108/55 97 02/23/17 19:40 98.3 87 18 110/53 95 02/23/17 16:28 105 18 116/75 99 I/O 02/23/17 02/23/17 02/23/17 02/24/17 02/24/17 02/24/17 07:00 15:00 23:00 07:00 15:00 23:00 Intake Total 600 ml 120 ml Balance 600 ml 120 ml Intake Oral 600 ml 120 ml # Voids 4 1 # Bowel Movements 1 Result Diagram: 02/20/17 0339 02/20/17 0339 Objective Remarks GENERAL: NAD SKIN: Warm and dry. HEAD: Normocephalic. EYES: No scleral icterus. No injection or drainage. NECK: Supple, trachea midline. No JVD or lymphadenopathy. CARDIOVASCULAR: Regular rate and rhythm without murmurs, gallops, or rubs. RESPIRATORY: Breath sounds equal bilaterally. No accessory muscle use. GASTROINTESTINAL: Abdomen soft, non-tender, nondistended. MUSCULOSKELETAL: No cyanosis, or edema. BACK: Nontender without obvious deformity. No CVA tenderness. Procedures none A/P Problem List: (1) Fracture of pubic ramus ICD Code: S32.599A Status: Acute (2) Toxic metabolic encephalopathy ICD Code: G92 Status: Acute Assessment and Plan 72-year-old female with Left superior and inferior pelvic rami fracture. Analgesics Physical therapy to treat and eval Continue with ibuprofen scheduled however discontinue Flexeril when necessary and Pamelor 25 mg at bedtime as well as narcotics secondary to lethargy and drowsiness Patient would benefit from rehabilitation as opposed to home with home health care Encephalopathy-resolved CT of the head with Subtle asymmetric low attenuation area in the deep white matter of the right parietal lobe of unclear significance. MRI Brain noted Appreciate input from neurology who has signed off Fall unclear etiology US bilateral carotid arteries noted without any acute finding CT of the head reviewed as above MRI Brain negative 2-D echocardiogram noted Rheumatoid arthritis- continue prednisone, methotrexate and Plaquenil Diabetes type 2: Continue to hold oral hypoglycemic agents, treatment with insulin sliding scale with fingerstick blood glucose monitoring Hypertension: Continue Coreg 6.25 mg by mouth twice a day GERD- Continue Protonix DVT prophylaxis: Bilateral SCDs Discharge Planning Patient is ready for Discharge to SNF Problem Qualifiers (1) Fracture of pubic ramus: Qualified Code: S32.592A - Fracture of pubic ramus, left, closed, initial encounter Frank Watters MD Feb 24, 2017 11:42
[2017-02-24 12:05] VITALS: BP 109/55; PULSE 103; RESP 18; O2SAT 95
[2017-02-24 19:32] VITALS: BP 102/55; PULSE 98; RESP 20; TEMP 96.8; O2SAT 96
[2017-02-24] MEDS: ATORVASTATIN 10 MG TAB PO SCH (20:28)
[2017-02-25] VITALS (8 sets, daily range): BP systolic 99–144; BP diastolic 53–88; PULSE 49–101; RESP 18–22; TEMP 97–98.7; O2SAT 95–100
[2017-02-25] MEDS: IBUPROFEN 400 MG TAB PO SCH ×4 (00:11→17:55)
[2017-02-25] MEDS: INSULIN ASPART SUPPLEMENTAL SCALE SQ SCH ×4 (06:25→20:20)
[2017-02-25] MEDS ORDERED: METHOTREXATE 2.5 MG TAB PO SCH (09:00)
[2017-02-25] MEDS: PANTOPRAZOLE SOD 40 MG DELAYED RELEASE TAB PO SCH (09:00)
[2017-02-25] MEDS: SODIUM CHLORIDE 0.9% FLUSH 10 ML FLUSH IV FLUSH SCH ×2 (09:00→20:09)
[2017-02-25] MEDS: HYDROXYCHLOROQUINE SULFATE 200 MG TAB PO SCH (09:41)
[2017-02-25] MEDS: DOCUSATE SODIUM 100 MG CAP PO SCH ×2 (09:42→20:09)
[2017-02-25] MEDS: CARVEDILOL 6.25 MG TAB PO SCH ×2 (09:44→20:09)
[2017-02-25] MEDS: ENOXAPARIN SODIUM 40 MG/0.4 ML SYRINGE SQ SCH (09:45)
[2017-02-25] MEDS: predniSONE 1 MG TAB PO SCH (09:45)
--- NOTE | 2017-02-25 11:38 | HHI.PR ---
Subjective Remarks Follow-up pelvic bones fracture/altered mental status change 02/20/17-patient seen and examined, complains of left hand. Alert and oriented 2. Afebrile. 02/21/17-patient seen and examined, states it hurts all over, afebrile and no acute event overnight. Alert and oriented 2. 02/22/17-patient seen and examined, reports some improvement of pain. Had a good night sleep 02/23/17-patient seen and examined, no acute event overnight, only complaints of back pain. 02/24/17-patient seen and examined, this morning she appears somehow slow in her response however alert and oriented to self and place. Daughters by the bedside. Discharge on 02/23/17 was held secondary to patient's requiring 3 people to get out of bed 02/25/17-patient seen and examined, appears exhausted after working with PT this morning. Some shortness of breath and wheezing on exam. Daughter by the bedside. Decreased urine output Objective Vitals Vital Signs Date Time Temp Pulse Resp B/P Pulse Ox O2 Delivery O2 Flow Rate FiO2 02/25/17 11:02 97.9 91 22 144/60 98 02/25/17 07:14 97.6 101 20 113/58 96 02/25/17 04:00 97.0 96 18 99/53 96 02/25/17 00:00 97.5 49 18 126/88 95 02/24/17 19:32 96.8 98 20 102/55 96 02/24/17 12:05 103 18 109/55 95 Objective Remarks GENERAL: NAD SKIN: Warm and dry. HEAD: Normocephalic. EYES: No scleral icterus. No injection or drainage. NECK: Supple, trachea midline. No JVD or lymphadenopathy. CARDIOVASCULAR: Regular rate and rhythm without murmurs, gallops, or rubs. RESPIRATORY: Breath sounds equal bilaterally. No accessory muscle use. GASTROINTESTINAL: Abdomen soft, non-tender, nondistended. MUSCULOSKELETAL: No cyanosis, or edema. BACK: Nontender without obvious deformity. No CVA tenderness. Procedures none A/P Problem List: (1) Fracture of pubic ramus ICD Code: S32.599A Status: Acute (2) Toxic metabolic encephalopathy ICD Code: G92 Status: Acute Assessment and Plan 72-year-old female with Left superior and inferior pelvic rami fracture. Continue Analgesics Physical therapy to treat and eval s/p Flexeril when necessary and Pamelor 25 mg at bedtime as well as narcotics secondary to lethargy and drowsiness Patient would benefit from rehabilitation as opposed to home with home health care Encephalopathy-resolved CT of the head with Subtle asymmetric low attenuation area in the deep white matter of the right parietal lobe of unclear significance. MRI Brain noted Appreciate input from neurology who has signed off Fall unclear etiology US bilateral carotid arteries noted without any acute finding CT of the head reviewed as above MRI Brain negative 2-D echocardiogram noted Rheumatoid arthritis- continue prednisone, methotrexate and Plaquenil Diabetes type 2: Continue to hold oral hypoglycemic agents, treatment with insulin sliding scale with fingerstick blood glucose monitoring Hypertension: Continue Coreg 6.25 mg by mouth twice a day Decreased urine output output: Check UA and treat accordingly Wheezes on exam: Check chest x-ray, scheduled DuoNeb and when necessary GERD- Continue Protonix DVT prophylaxis: Bilateral SCDs Discharge Planning Patient is ready for Discharge to SNF Problem Qualifiers (1) Fracture of pubic ramus: Qualified Code: S32.592A - Fracture of pubic ramus, left, closed, initial encounter Frank Watters MD Feb 25, 2017 11:38
[2017-02-25] MEDS ORDERED: HOSP BED1 (11:39)
--- NOTE | 2017-02-25 11:44 | RADRPT ---
EXAM DATE/TIME: 02/25/2017 11:09 [facility] COMPARISON: No previous studies available for comparison. INDICATIONS : Short of breath MEDICAL HISTORY : None. SURGICAL HISTORY : None. ENCOUNTER: Initial ACUITY: 1 day PAIN SCORE: 0/10 LOCATION: Bilateral chest FINDINGS: The lungs are clear without infiltrate, nodule, or mass. There is no appreciable pleural effusion fo r technique. Heart and mediastinum are unremarkable. IMPRESSION: No acute cardiopulmonary disease. Antonio Estevez MD on February 25, 2017 at 11:42 Board Certified Radiologist. This report was verified electronically.
[2017-02-25] MEDS: RESP: ALBUTEROL 2.5 MG/IPRATROPIUM 0.5 MG NEB (SCH) NEB ×2 (11:46→21:53)
[2017-02-25 16:21] LABS: BACTERIA, URINE OCC /hpf; BLOOD, URINE MOD (NEG); COMMENT (UR) CULTURE INDICATED; CULTURE IF INDICATED CULTURE INDICATED; GLUCOSE,URINE NEG (NEG); KETONE, URINE 10 mg/dL (NEG); MUCUS URINE FEW /lpf (OCC); NITRITE,URINE NEG (NEG); PH, URINE 5.5 (5.0-8.5); SQUAMOUS EPITHELIAL CELL URINE 3 /hpf (0-5); TRANSITIONAL EPI CELLS, URINE 1 /hpf; URINE COLOR YELLOW (YELLW/STRAW)
[2017-02-25] MEDS: ATORVASTATIN 10 MG TAB PO SCH (20:09)
[2017-02-26] VITALS (8 sets, daily range): BP systolic 97–118; BP diastolic 52–72; PULSE 88–96; RESP 16–22; TEMP 97.4–98.2; O2SAT 96–99
[2017-02-26] MEDS: IBUPROFEN 400 MG TAB PO SCH ×5 (06:00→23:22)
[2017-02-26] MEDS: INSULIN ASPART SUPPLEMENTAL SCALE SQ SCH ×4 (06:44→21:00)
[2017-02-26] MEDS: RESP: ALBUTEROL 2.5 MG/IPRATROPIUM 0.5 MG NEB (SCH) NEB ×3 (07:48→19:19)
[2017-02-26] MEDS: SODIUM CHLORIDE 0.9% FLUSH 10 ML FLUSH IV FLUSH SCH ×3 (09:00→21:00)
[2017-02-26] MEDS: DOCUSATE SODIUM 100 MG CAP PO SCH ×2 (09:00→21:56)
[2017-02-26] MEDS: HYDROXYCHLOROQUINE SULFATE 200 MG TAB PO SCH (09:13)
[2017-02-26] MEDS: PANTOPRAZOLE SOD 40 MG DELAYED RELEASE TAB PO SCH (09:13)
[2017-02-26] MEDS: CARVEDILOL 6.25 MG TAB PO SCH ×2 (09:13→21:56)
[2017-02-26] MEDS: predniSONE 1 MG TAB PO SCH (09:13)
[2017-02-26] MEDS: ENOXAPARIN SODIUM 40 MG/0.4 ML SYRINGE SQ SCH (09:13)
--- NOTE | 2017-02-26 12:04 | HHI.PR ---
Subjective Remarks Follow-up pelvic bones fracture/altered mental status change 02/20/17-patient seen and examined, complains of left hand. Alert and oriented 2. Afebrile. 02/21/17-patient seen and examined, states it hurts all over, afebrile and no acute event overnight. Alert and oriented 2. 02/22/17-patient seen and examined, reports some improvement of pain. Had a good night sleep 02/23/17-patient seen and examined, no acute event overnight, only complaints of back pain. 02/24/17-patient seen and examined, this morning she appears somehow slow in her response however alert and oriented to self and place. Daughters by the bedside. Discharge on 02/23/17 was held secondary to patient's requiring 3 people to get out of bed 02/25/17-patient seen and examined, appears exhausted after working with PT this morning. Some shortness of breath and wheezing on exam. Daughter by the bedside. Decreased urine output 02/26/17-patient seen and examined continued to complain of pelvic pain and now per nurse report complain of left upper extremity pain however patient did not mention it to me. Case was discussed with family preservation caseworker as well as Dr. Ramon regarding discharge disposition. Per family preservation caseworker, family is now willing to have patient discharged to long-term care facility Objective Vitals Vital Signs Date Time Temp Pulse Resp B/P Pulse Ox O2 Delivery O2 Flow Rate FiO2 02/26/17 11:08 97.6 90 18 114/55 98 02/26/17 07:48 99 21 02/26/17 07:11 16 02/26/17 07:00 97.9 90 18 114/54 98 02/26/17 06:06 88 16 118/58 99 02/26/17 00:14 97.8 93 18 106/56 98 02/25/17 21:54 95 21 02/25/17 20:24 98.7 99 18 119/58 97 02/25/17 16:00 97.1 96 20 135/62 100 I/O 02/25/17 02/25/17 02/25/17 02/26/17 02/26/17 02/26/17 07:00 15:00 23:00 07:00 15:00 23:00 Intake Total 536 ml 200 ml Balance 536 ml 200 ml Intake Oral 536 ml 200 ml # Voids 2 1 Imaging Last Impressions Carotid Artery Ultrasound 02/20/17 0000 Signed Impressions: Service Date/Time: Monday, February 20, 2017 08:54 - CONCLUSION: 1. No evidence for hemodynamically significant stenosis of either carotid artery. 2. Moderate calcific plaquing of the left carotid bulb. Jeremy Stanley MD Brain MRI 02/20/17 0000 Signed Impressions: Service Date/Time: Monday, February 20, 2017 10:02 - CONCLUSION: Mild cerebral white matter disease characteristic of chronic microvascular ischemic change. Focal hypodensity in the right centrum semiovale is consistent with chronic microvascular disease. No evidence of acute infarct, hemorrhage, mass or abnormal enhancement. Abe Iraheta MD Head CT 02/19/171942 Signed Impressions: Service Date/Time: Sunday, February 19, 2017 20:05 - CONCLUSION: Subtle asymmetric low attenuation area in the deep white matter of the right parietal lobe of unclear significance. Further evaluation with MRI imaging with and without contrast is recommended. Cal Atkins MD Chest X-Ray 02/19/171942 Signed Impressions: Service Date/Time: Sunday, February 19, 2017 19:44 - CONCLUSION: Suboptimal rotated and kyphotic exam with apparent cardiomegaly and no definite acute cardiopulmonary disease. Cal Atkins MD Lower Extremity CT 02/19/17 0000 Signed Impressions: Service Date/Time: Sunday, February 19, 2017 20:11 - CONCLUSION: 1. Subacute fracture involving the left superior and inferior pubic rami. 2. The left hip is intact. 3. Degenerative change involving the lumbar spine with scoliosis. Cal Atkins MD Objective Remarks GENERAL: NAD SKIN: Warm and dry. HEAD: Normocephalic. EYES: No scleral icterus. No injection or drainage. NECK: Supple, trachea midline. No JVD or lymphadenopathy. CARDIOVASCULAR: Regular rate and rhythm without murmurs, gallops, or rubs. RESPIRATORY: Breath sounds equal bilaterally. No accessory muscle use. GASTROINTESTINAL: Abdomen soft, non-tender, nondistended. MUSCULOSKELETAL: No cyanosis, or edema. BACK: Nontender without obvious deformity. No CVA tenderness. Procedures none A/P Problem List: (1) Fracture of pubic ramus ICD Code: S32.599A Status: Acute (2) Toxic metabolic encephalopathy ICD Code: G92 Status: Resolved (3) UTI (urinary tract infection) ICD Code: N39.0 Status: Acute Assessment and Plan 72-year-old female with Left superior and inferior pelvic rami fracture. Continue Analgesics Physical therapy to treat and eval s/p Flexeril when necessary and Pamelor 25 mg at bedtime as well as narcotics Patient would benefit from rehabilitation as opposed to home with home health care Encephalopathy-resolved CT of the head with Subtle asymmetric low attenuation area in the deep white matter of the right parietal lobe of unclear significance. MRI Brain noted Appreciate input from neurology who has signed off Patient is much more alert and oriented after all narcotics were discontinued Fall unclear etiology US bilateral carotid arteries noted without any acute finding CT of the head reviewed as above MRI Brain negative 2-D echocardiogram noted Fall precaution and continue physical therapy Rheumatoid arthritis- continue prednisone, methotrexate and Plaquenil Diabetes type 2: Resume oral hypoglycemic agents, treatment with insulin sliding scale with fingerstick blood glucose monitoring Hypertension: Continue Coreg 6.25 mg by mouth twice a day UTI: Gram-negative rods; will start patient on Cipro 500 mg by mouth twice a day pending final urine culture Wheezes on exam: Check chest x-ray, scheduled DuoNeb and when necessary GERD- Continue Protonix DVT prophylaxis: Bilateral SCDs Discharge Planning Possible discharge to long-term care Problem Qualifiers (1) Fracture of pubic ramus: Qualified Code: S32.592A - Fracture of pubic ramus, left, closed, initial encounter Frank Watters MD Feb 26, 2017 12:04
[2017-02-26] MEDS: CIPROFLOXACIN 500 MG TAB PO SCH ×2 (13:51→21:56)
[2017-02-26] MEDS: ATORVASTATIN 10 MG TAB PO SCH (21:56)
[2017-02-27] VITALS (8 sets, daily range): BP systolic 111–136; BP diastolic 56–66; PULSE 97–102; RESP 18–24; TEMP 97.1–98.6; O2SAT 95–98
[2017-02-27] MEDS: IBUPROFEN 400 MG TAB PO SCH ×4 (06:00→23:58)
[2017-02-27] MEDS: INSULIN ASPART SUPPLEMENTAL SCALE SQ SCH ×4 (06:33→21:45)
[2017-02-27] MEDS: RESP: ALBUTEROL 2.5 MG/IPRATROPIUM 0.5 MG NEB (SCH) NEB ×3 (08:21→20:00)
--- NOTE | 2017-02-27 08:25 | HHI.PR ---
Subjective Remarks Follow-up pelvic bones fracture/altered mental status change 02/20/17-patient seen and examined, complains of left hand. Alert and oriented 2. Afebrile. 02/21/17-patient seen and examined, states it hurts all over, afebrile and no acute event overnight. Alert and oriented 2. 02/22/17-patient seen and examined, reports some improvement of pain. Had a good night sleep 02/23/17-patient seen and examined, no acute event overnight, only complaints of back pain. 02/24/17-patient seen and examined, this morning she appears somehow slow in her response however alert and oriented to self and place. Daughters by the bedside. Discharge on 02/23/17 was held secondary to patient's requiring 3 people to get out of bed 02/25/17-patient seen and examined, appears exhausted after working with PT this morning. Some shortness of breath and wheezing on exam. Daughter by the bedside. Decreased urine output 02/26/17-patient seen and examined continued to complain of pelvic pain and now per nurse report complain of left upper extremity pain however patient did not mention it to me. Case was discussed with pillowcase cutter as well as Dr. Ramon regarding discharge disposition. Per pillowcase cutter, family is now willing to have patient discharged to long-term care facility 02/27/17-patient seen and examined, denies any acute event overnight. Although complaints of pelvic pain however she reports some improvement. Currently afebrile. Objective Vitals Vital Signs Date Time Temp Pulse Resp B/P Pulse Ox O2 Delivery O2 Flow Rate FiO2 02/27/17 06:36 18 02/27/17 04:00 97.9 97 20 130/60 97 02/27/17 00:00 97.1 102 20 136/63 97 02/26/17 20:00 98.2 96 22 106/72 97 02/26/17 19:21 96 21 02/26/17 15:07 97.4 90 18 97/52 98 02/26/17 11:08 97.6 90 18 114/55 98 I/O 02/26/17 02/26/17 02/26/17 02/27/17 02/27/17 02/27/17 07:00 15:00 23:00 07:00 15:00 23:00 Intake Total 200 ml 100 ml Balance 200 ml 100 ml Intake Oral 200 ml 100 ml # Voids 2 Imaging Last Impressions Carotid Artery Ultrasound 02/20/17 0000 Signed Impressions: Service Date/Time: Monday, February 20, 2017 08:54 - CONCLUSION: 1. No evidence for hemodynamically significant stenosis of either carotid artery. 2. Moderate calcific plaquing of the left carotid bulb. Jeremy Stanley MD Brain MRI 02/20/17 0000 Signed Impressions: Service Date/Time: Monday, February 20, 2017 10:02 - CONCLUSION: Mild cerebral white matter disease characteristic of chronic microvascular ischemic change. Focal hypodensity in the right centrum semiovale is consistent with chronic microvascular disease. No evidence of acute infarct, hemorrhage, mass or abnormal enhancement. Abe Iraheta MD Head CT 02/19/171942 Signed Impressions: Service Date/Time: Sunday, February 19, 2017 20:05 - CONCLUSION: Subtle asymmetric low attenuation area in the deep white matter of the right parietal lobe of unclear significance. Further evaluation with MRI imaging with and without contrast is recommended. Cal Atkins MD Chest X-Ray 02/19/171942 Signed Impressions: Service Date/Time: Sunday, February 19, 2017 19:44 - CONCLUSION: Suboptimal rotated and kyphotic exam with apparent cardiomegaly and no definite acute cardiopulmonary disease. Cal Atkins MD Lower Extremity CT 02/19/17 Signed Impressions: Service Date/Time: Sunday, February 19, 2017 20:11 - CONCLUSION: 1. Subacute fracture involving the left superior and inferior pubic rami. 2. The left hip is intact. 3. Degenerative change involving the lumbar spine with scoliosis. Cal Atkins MD Objective Remarks GENERAL: NAD SKIN: Warm and dry. HEAD: Normocephalic. EYES: No scleral icterus. No injection or drainage. NECK: Supple, trachea midline. No JVD or lymphadenopathy. Mouth: oral thrush CARDIOVASCULAR: Regular rate and rhythm without murmurs, gallops, or rubs. RESPIRATORY: Breath sounds equal bilaterally. No accessory muscle use. GASTROINTESTINAL: Abdomen soft, non-tender, nondistended. MUSCULOSKELETAL: No cyanosis, or edema. BACK: Nontender without obvious deformity. No CVA tenderness. Procedures none A/P Problem List: (1) Fracture of pubic ramus ICD Code: S32.599A Status: Acute (2) Toxic metabolic encephalopathy ICD Code: G92 Status: Resolved (3) UTI (urinary tract infection) ICD Code: N39.0 Status: Acute (4) Candidiasis of mouth ICD Code: B37.0 Status: Acute Assessment and Plan 72-year-old female with Left superior and inferior pelvic rami fracture. Continue Analgesics Physical therapy to treat and eval s/p Flexeril when necessary and Pamelor 25 mg at bedtime as well as narcotics Patient has been reluctant to participate in PT activity Encephalopathy-resolved CT of the head with Subtle asymmetric low attenuation area in the deep white matter of the right parietal lobe of unclear significance. MRI Brain noted Appreciate input from neurology who has signed off Fall unclear etiology US bilateral carotid arteries noted without any acute finding CT of the head reviewed as above MRI Brain negative 2-D echocardiogram noted Fall precaution and continue physical therapy Rheumatoid arthritis- continue prednisone, methotrexate and Plaquenil Diabetes type 2: Resume oral hypoglycemic agents and continue with insulin sliding scale with fingerstick blood glucose monitoring Hypertension: Continue Coreg 6.25 mg by mouth twice a day UTI: Gram-negative rods; currently on Cipro 500 mg by mouth twice a day pending final urine culture Oral candidiasis: start Nystatin SS GERD- Continue Protonix DVT prophylaxis: Bilateral SCDs Discharge Planning Possible discharge to long-term care today 02/27/17 Problem Qualifiers (1) Fracture of pubic ramus: Qualified Code: S32.592A - Fracture of pubic ramus, left, closed, initial encounter Frank Watters MD Feb 27, 2017 08:24
[2017-02-27] MEDS: SODIUM CHLORIDE 0.9% FLUSH 10 ML FLUSH IV FLUSH SCH ×2 (09:00→21:00)
[2017-02-27] MEDS: ENOXAPARIN SODIUM 40 MG/0.4 ML SYRINGE SQ SCH (09:48)
[2017-02-27] MEDS: CARVEDILOL 6.25 MG TAB PO SCH ×2 (09:48→21:55)
[2017-02-27] MEDS: predniSONE 1 MG TAB PO SCH (09:48)
[2017-02-27] MEDS: NYSTAT/DIPHENHY/LIDO MOUTHWASH (Adult) 120ML SWISH-SWAL SCH ×4 (09:48→21:55)
[2017-02-27] MEDS: HYDROXYCHLOROQUINE SULFATE 200 MG TAB PO SCH (09:48)
[2017-02-27] MEDS: CIPROFLOXACIN 500 MG TAB PO SCH ×2 (09:48→21:54)
[2017-02-27] MEDS: PANTOPRAZOLE SOD 40 MG DELAYED RELEASE TAB PO SCH (09:49)
[2017-02-27] MEDS: DOCUSATE SODIUM 100 MG CAP PO SCH ×2 (09:49→21:55)
[2017-02-27] MEDS: metFORMIN HCL 500 MG TAB PO SCH ×2 (10:18→18:11)
[2017-02-27] MEDS: ATORVASTATIN 10 MG TAB PO SCH (21:54)
[2017-02-28] MEDS: RESP: ALBUTEROL 2.5 MG/IPRATROPIUM 0.5 MG NEB (PRN) NEB ×2 (00:44→17:31)
[2017-02-28 00:53] VITALS: O2SAT 94
[2017-02-28 04:00] VITALS: BP 121/64; PULSE 98; RESP 20; TEMP 97; O2SAT 95
[2017-02-28] MEDS: IBUPROFEN 400 MG TAB PO SCH ×3 (05:48→15:24)
[2017-02-28] MEDS: INSULIN ASPART SUPPLEMENTAL SCALE SQ SCH ×3 (06:04→15:23)
[2017-02-28 07:43] VITALS: BP 102/57; PULSE 82; RESP 17; TEMP 95.8; O2SAT 98
[2017-02-28] MEDS: RESP: ALBUTEROL 2.5 MG/IPRATROPIUM 0.5 MG NEB (SCH) NEB ×2 (08:03→13:14)
[2017-02-28 08:05] VITALS: O2SAT 98
[2017-02-28] MEDS: SODIUM CHLORIDE 0.9% FLUSH 10 ML FLUSH IV FLUSH SCH (09:00)
[2017-02-28] MEDS: CIPROFLOXACIN 500 MG TAB PO SCH (09:14)
[2017-02-28] MEDS: DOCUSATE SODIUM 100 MG CAP PO SCH (09:14)
[2017-02-28] MEDS: metFORMIN HCL 500 MG TAB PO SCH ×2 (09:15→15:23)
[2017-02-28] MEDS: NYSTAT/DIPHENHY/LIDO MOUTHWASH (Adult) 120ML SWISH-SWAL SCH ×3 (09:15→15:24)
[2017-02-28] MEDS: HYDROXYCHLOROQUINE SULFATE 200 MG TAB PO SCH (09:15)
[2017-02-28] MEDS: predniSONE 1 MG TAB PO SCH (09:15)
[2017-02-28] MEDS: ENOXAPARIN SODIUM 40 MG/0.4 ML SYRINGE SQ SCH (09:15)
[2017-02-28] MEDS: PANTOPRAZOLE SOD 40 MG DELAYED RELEASE TAB PO SCH (09:15)
[2017-02-28] MEDS: CARVEDILOL 6.25 MG TAB PO SCH (09:15)
[2017-02-28 10:50] VITALS: BP 99/55; PULSE 87; RESP 18; TEMP 96.1; O2SAT 96
[2017-02-28] MEDS: BISACODYL 10 MG SUPP RECTAL PRN (10:56)
--- NOTE | 2017-02-28 11:18 | HHI.PR ---
Subjective Remarks Follow-up pelvic bones fracture/altered mental status change 02/20/17-patient seen and examined, complains of left hand. Alert and oriented 2. Afebrile. 02/21/17-patient seen and examined, states it hurts all over, afebrile and no acute event overnight. Alert and oriented 2. 02/22/17-patient seen and examined, reports some improvement of pain. Had a good night sleep 02/23/17-patient seen and examined, no acute event overnight, only complaints of back pain. 02/24/17-patient seen and examined, this morning she appears somehow slow in her response however alert and oriented to self and place. Daughters by the bedside. Discharge on 02/23/17 was held secondary to patient's requiring 3 people to get out of bed 02/25/17-patient seen and examined, appears exhausted after working with PT this morning. Some shortness of breath and wheezing on exam. Daughter by the bedside. Decreased urine output 02/26/17-patient seen and examined continued to complain of pelvic pain and now per nurse report complain of left upper extremity pain however patient did not mention it to me. Case was discussed with outsole caser as well as Dr. Ramon regarding discharge disposition. Per outsole caser, family is now willing to have patient discharged to long-term care facility 02/27/17-patient seen and examined, denies any acute event overnight. Although complaints of pelvic pain however she reports some improvement. Currently afebrile. 02/28/17-patient seen and examined, she is alert however somehow lethargic. Afebrile Objective Vitals Vital Signs Date Time Temp Pulse Resp B/P Pulse Ox O2 Delivery O2 Flow Rate FiO2 02/28/17 10:50 96.1 87 18 99/55 96 02/28/17 08:05 98 21 02/28/17 07:43 95.8 82 17 102/57 98 02/28/17 04:00 97.0 98 20 121/64 95 02/28/17 00:53 94 21 02/27/17 23:32 98.3 98 18 114/66 95 02/27/17 20:19 98.6 97 20 115/59 98 02/27/17 15:27 97.9 100 20 127/56 97 I/O 4/19/17 4/1902/27/17 02/28/17 02/28/17 02/28/17 07:00 15:00 23:00 07:00 15:00 23:00 Intake Total 100 ml 340 ml 120 ml Balance 100 ml 340 ml 120 ml Intake Oral 100 ml 340 ml 120 ml # Voids 1 2 # Bowel Movements 0 Objective Remarks GENERAL: NAD SKIN: Warm and dry. HEAD: Normocephalic. EYES: No scleral icterus. No injection or drainage. NECK: Supple, trachea midline. No JVD or lymphadenopathy. Mouth: oral thrush CARDIOVASCULAR: Regular rate and rhythm without murmurs, gallops, or rubs. RESPIRATORY: Breath sounds equal bilaterally. No accessory muscle use. GASTROINTESTINAL: Abdomen soft, non-tender, nondistended. MUSCULOSKELETAL: No cyanosis, or edema. BACK: Nontender without obvious deformity. No CVA tenderness. Procedures none A/P Problem List: (1) Fracture of pubic ramus ICD Code: S32.599A Status: Acute (2) Toxic metabolic encephalopathy ICD Code: G92 Status: Resolved (3) UTI (urinary tract infection) ICD Code: N39.0 Status: Acute (4) Candidiasis of mouth ICD Code: B37.0 Status: Acute Assessment and Plan 72-year-old female with Left superior and inferior pelvic rami fracture. Continue Analgesics Physical therapy to treat and eval s/p Flexeril when necessary and Pamelor 25 mg at bedtime as well as narcotics Patient continues to be reluctant to participate in PT activity Encephalopathy-resolved CT of the head with Subtle asymmetric low attenuation area in the deep white matter of the right parietal lobe of unclear significance. MRI Brain noted without any acute finding Appreciate input from neurology who has signed off However 02/28/17 patient appears to be more lethargic, may consider repeating head CT Fall unclear etiology US bilateral carotid arteries noted without any acute finding CT of the head reviewed as above MRI Brain negative 2-D echocardiogram noted Fall precaution and continue physical therapy Rheumatoid arthritis- continue prednisone, methotrexate and Plaquenil Diabetes type 2: Continue oral hypoglycemic agents and continue with insulin sliding scale with fingerstick blood glucose monitoring Hypertension: Continue Coreg 6.25 mg by mouth twice a day, however secondary to hypotension will write holding parameters and consider decreasing Coreg UTI-Escherichia coli: currently on Cipro 500 mg by mouth twice a day Oral candidiasis: Continue Nystatin SS GERD- Continue Protonix DVT prophylaxis: Bilateral SCDs Discharge Planning Awaiting discharge to long-term currently Problem Qualifiers (1) Fracture of pubic ramus: Qualified Code: S32.592A - Fracture of pubic ramus, left, closed, initial encounter Frank Watters MD Feb 28, 2017 11:18
[2017-02-28 15:17] VITALS: BP 85/55; PULSE 104; RESP 18; TEMP 95.5; O2SAT 97
[2017-02-28] MEDS ORDERED: CIPR-9 PO (15:38)
== END 2017-02-28 18:25 ==
LOC: NEPC 19:35 → NEDA 22:09 → INTOOBSV 22:09 → NEPFCDU 02-20 00:14 → N06B 02-27 23:30
PROVIDERS: ADMIT Hospitalist; ATTEND Hospitalist
DX: G92 Toxic encephalopathy (principal); S32.592A Other specified fracture of left pubis, initial encounter for closed fracture; R41.82 Altered mental status, unspecified; D64.9 Anemia, unspecified; M06.9 Rheumatoid arthritis, unspecified; I51.7 Cardiomegaly; I11.9 Hypertensive heart disease without heart failure; E11.9 Type 2 diabetes mellitus without complications; E78.00 Pure hypercholesterolemia, unspecified; M19.90 Unspecified osteoarthritis, unspecified site; Z79.899 Other long term (current) drug therapy; Z79.84 Long term (current) use of oral hypoglycemic drugs; E78.5 Hyperlipidemia, unspecified; K21.9 Gastro-esophageal reflux disease without esophagitis; R26.2 Difficulty in walking, not elsewhere classified; Z91.81 History of falling; R06.2 Wheezing; R06.02 Shortness of breath; M79.602 Pain in left arm; R10.2 Pelvic and perineal pain; N39.0 Urinary tract infection, site not specified; B37.0 Candidal stomatitis; B96.20 Unspecified Escherichia coli [E. coli] as the cause of diseases classified elsewhere
CPT/HCPCS: 70450; 70553; 71010; 73700; 80048; 80053; 81001; 82550; 82948; 84484; 85007; 85025; 85027; 85610; 85730; 87077; 87086; 87186; 93005; 93306; 93880; 94640; 94664; 97110; 97163; 97530; 99285; A9579; G0378; G8987; G8988; J1650; J1815; J2270; J7512; J7644